=== PATIENT | female | born 1940 | race Caucasian/White ===

== ENCOUNTER 2017-05-19 11:02 | Inpatient (IN) | payer MEDICARE ==
[2017-05-19 11:51] LABS: PTT 34.5 SEC (22.9-36.1); Prothrombin Time 18.5 SEC (12.0-14.7)
[2017-05-19 11:53] LABS: #Eosinphils 0.1 thou/uL (0.0-0.7); #Monocytes 0.7 thou/uL (0.11-0.59); #Neutrophils 4.4 thou/uL (1.40-6.50); %Basophils 0.6 % (0.0-1.0); %Eosinophils 1.6 % (0.0-10.0); %Lymphocytes 15.8 % (21.0-51.0); %Monocytes 10.6 % (0.0-10.0); Hematocrit 16.8 % (36.0-47.0); Red Blood Cell (RBC) Count 2.27 mill/uL (4.20-5.40); White Blood Cell (WBC) Count 6.2 thou/uL (4.8-10.8)
[2017-05-19 12:07] LABS: Troponin I Less than 0.010 ng/mL (< 0.028)
[2017-05-19 12:08] LABS: ALT (SGPT) 14 U/L (8-55); AST (SGOT) 17 U/L (5-34); Alkaline Phosphatase 70 U/L (40-150); Anion Gap 8 mmol/L (10-20); BUN (Urea Nitrogen) 23 mg/dL (9.8-20.1); Bilirubin, Total 0.8 mg/dL (0.2-1.2); CK (CPK) 52 U/L (29-168); Calc. Creatinine Clearance 0 mL/min (70-130); Carbon Dioxide 25 mmol/L (23-31); Chloride 106 mmol/L (98-107); Estimated GFR-MDRD 54; Globulin 2.9 g/dL (2.4-3.5); Lipase 16 U/L (8-78); Protein, Total 6.4 g/dL (6.0-8.3)
--- NOTE | 2017-05-19 12:18 | RAD ---
AP VIEW OF THE CHEST: INDICATIONS: Chest pain with shortness of breath. COMPARISON: Prior exam dated 10/29/2012. FINDINGS: Midline sternotomy changes are similar. There is mild to moderate cardiomegaly. There is mild pulmo nary vascular congestion. No acute air space opacity or pleural effusion is evident. No acute osseo us abnormality is evident. Coronary stents are below the left heart border. These are stable to the comparison. IMPRESSION: Mild cardiomegaly. POS: JORDAN
--- NOTE | 2017-05-19 14:12 | HP ---
PRIMARY CARE PHYSICIAN: [facility]. REASON FOR ADMISSION: Symptomatic anemia. HISTORY OF PRESENT ILLNESS: A 76-year-old -[place] female with a history of coronary artery disease as well as paroxysmal atrial fibrillation on low dose of aspirin and chronic Eliquis therapy. The patient came to emergency room with 3-month history of intermittent substernal chest pain on ex ertion as well as dyspnea on exertion, palpitations, dizziness, and generalized weakness with exertio n. The patient reports that initially she was getting out of breath, palpitation and dyspnea after w alking about a block, but gradually this distance is decreasing. Last night, patient was able to wal k only from her bedroom to kitchen and she was getting out of breath and she was hurting in her chest . She denies any syncope. She denies any diaphoreses. She denies any associated nausea, vomiting. The patient reports that since Eliquis started 1 year, patient is feeling these symptoms. She never had any melenotic stool. She denies any hematochezia. She denies any hematemesis. She denies any e pigastric abdominal pain. The patient does report that she gets lightheadedness and headache symptom s in posterior aspect of her head and she takes Tylenol, but she denies taking any NSAID. She denies any fever or chills. She denies any NSAID abuse. The patient reports that she never had any upper and lower endoscopic evaluation in the past. Today, patient came to emergency room and she had routine blood test, which showed hemoglobin 5.1. I n the emergency room, she refused to check her guaiac. At this point, we are admitting this patient to telemetry floor for anemia evaluation. REVIEW OF SYSTEMS: The following complete review of systems was negative, unless otherwise mentioned in the HPI or below: Constitutional: Weight loss or gain, ability to conduct usual activities. Skin: Rash, itching. Eyes: Double vision, pain. ENT/Mouth: Nose bleeding, neck stiffness, pain, tenderness. Cardiovascular: Palpitations, dyspnea on exertion, orthopnea. Respiratory: Shortness of breath, wheezing, cough, hemoptysis, fever or night sweats. Gastrointestinal: Poor appetite, abdominal pain, heartburn, nausea, vomiting, constipation, or diarr hea. Genitourinary: Urgency, frequency, dysuria, nocturia. Musculoskeletal: Pain, swelling. Neurologic/Psychiatric: Anxiety, depression. Allergy/Immunologic: Skin rash, bleeding tendency. Please see my HPI for pertinent positives and negatives. All other review of systems reviewed and ne gative except as mentioned in the HPI. ALLERGIES: HYDROCODONE. CURRENT HOME MEDICATIONS: Lipitor 80 mg p.o. at bedtime, aspirin 81 mg p.o. daily, lisinopril 20 mg twice daily, Coreg 6.25 mg p.o. b.i.d., Synthroid 88 mcg p.o. daily, Eliquis 5 mg twice daily, Zetia 10 mg p.o. daily, hydralazine 25 mg twice daily, amlodipine 5 mg p.o. daily. PAST MEDICAL HISTORY: Patient was diagnosed with coronary artery disease in 1997. At that time, she had balloon angioplasty. Subsequently, she had cardiac catheterization in 2004, required 5 stent an d she did very well up until 2012. At that time, she required CABG, hypertension, dyslipidemia, rheu matoid arthritis, atrial fibrillation on chronic anticoagulation therapy. PAST SURGICAL HISTORY: CABG x5 and cataract surgery. PAST PSYCHIATRIC HISTORY: Anxiety and depression. SOCIAL HISTORY: Patient lives at home with her daughter. No history of tobacco, alcohol or illicit drug abuse. FAMILY HISTORY: Maternal side positive for coronary artery disease. Paternal side positive for vari ous cancers. EMERGENCY ROOM COURSE: Patient is receiving blood transfusion. PHYSICAL EXAMINATION: VITAL SIGNS: On arrival, blood pressure 131/51, pulse 60, respiratory rate 18, temperature 98.9, sat uration 100% on room air. Weight 70.8 kilograms. GENERAL: Patient is currently alert, awake, no obvious acute distress. HEAD: Normocephalic, atraumatic. EYES: Pupils round, reactive to light. Extraocular muscles intact. ENT: Oropharynx within normal limits. Moist mucous membranes. No oral lesions. No pharyngeal eryt gerardo, no exudates. NECK: Supple, no JVD, no thyromegaly, no carotid bruits. LUNGS: Clear to auscultation without any rhonchi or rales. CARDIAC: S1 and S2 regular. Systolic murmur noted at parasternal area. No gallop, no rub. ABDOMEN: Soft. No epigastric tenderness, no organomegaly, no mass, no suprapubic tenderness, no dis tention, no peritoneal sign. BACK: Unremarkable, no CVA tenderness. EXTREMITIES: Upper extremity passive movements of all joints are normal. Lower extremities: No mitch ma. Good peripheral pulsation. SKIN: No skin rash, pallor plus. PSYCHIATRIC: Normal affect. NEUROLOGIC: The patient is alert and oriented x3. Cranial nerves II-XII intact. Motor and sensatio n within normal limits. IMAGING AND SIGNIFICANT LABORATORY DATA: EKG showing sinus bradycardia, nonspecific ST-T changes. C hest x-ray based on my review, no acute cardiopulmonary process. CBC: WBC 6.2, hemoglobin 5.1, MCV 73.9, and platelet 168. INR 1.5. BMP: Sodium 135, potassium 4.0, chloride 106, carbon dioxide 25, anion gap 8, BUN 23, creatinine 0.99, glucose 151, calcium 9.0. LFT: AST 17, ALT 14, alkaline phosp hatase 70, albumin 3.5. Lipase 16, CK 52, CK-MB 1.2, troponin I less than 0.010. ASSESSMENT AND PLAN/IMPRESSION: 1. Symptomatic anemia. The patient has symptomatology of chest pain on exertion, dyspnea on exertio n, palpitations, dizziness, generalized weakness going on for last 3 months and currently found with hemoglobin 5.1. Patient has all classic symptoms of iron deficiency anemia, most likely related with chronic blood loss secondary to chronic anticoagulation therapy. At this point, we will check anemi a study with iron, ferritin, TIBC, and stool for guaiac. Patient will need 2 units of blood transfus ion for symptomatic anemia given her coronary artery disease. Patient will need gastrointestinal wor kup for anemia to rule out any ongoing blood loss. 2. Chronic iron deficiency anemia likely due to chronic blood loss. This patient denies any acute b lood loss history. We will check stool for guaiac. We will consult senior sql database developer as this patie nt never had any endoscopic evaluation and she did not have any anemia workup. As patient was on Natalie mell therapy, we will hold on aspirin as well as Eliquis therapy until procedure is done. 3. Coronary artery disease with a history of coronary artery bypass graft. We will monitor [facility] because of severe anemia. We will hold on aspirin and Eliquis therapy. If blood pressure permits, then we will continue with Coreg 6.25 mg twice daily, lisinopril 20 mg twice daily, hydrala zine 25 mg twice daily and amlodipine 5 mg p.o. daily. We will also continue statin therapy with Lip itor 80 mg p.o. at bedtime and Zetia 10 mg p.o. daily. 4. Hypertension. We will continue lisinopril, Coreg, hydralazine and amlodipine as mentioned above. 5. Dyslipidemia. We will check lipid profile tomorrow and continue Lipitor and Zetia as per home do norris. 6. History of paroxysmal atrial fibrillation, currently on sinus rhythm and patient is supposed to g et echocardiography as per Dr. Gonzales and we will obtain echocardiography as well. Patient will be on hold for chronic anticoagulation therapy. 7. Hypothyroidism. We will continue Synthroid 88 mcg p.o. daily. 8. Deep venous thrombosis prophylaxis, sequential compression device boots. We will hold on Lovenox therapy because of severe anemia. 9. Gastrointestinal prophylaxis, Protonix 40 mg IV daily. 10. Code status: The patient is FULL CODE. Patient's daughter is surrogate decision maker. 11. Murmur. Patient will need echocardiography for further evaluation. I am suspecting hemic murmu r, but underlying valvular heart disease needs to be excluded. Disposition plan based on clinical course. We are expecting patient's stay in the hospital more than 2 midnights. Plan of care discussed with the patient's daughter at bedside in the emergency room.
[2017-05-19] MEDS ORDERED: Eucerin (Mineral Oil/Petrolatum,White) 30 gm Jar TOP PRN (14:40)
[2017-05-19] MEDS ORDERED: Diabetic Tussin 200 MG/10 ML UDCUP PO PRN (14:40)
[2017-05-19] MEDS ORDERED: Chloraseptic Spray 180 ml Bottle PO PRN (14:40)
[2017-05-19] MEDS ORDERED: Senokot 8.6 MG TAB PO PRN (14:40)
[2017-05-19] MEDS ORDERED: Nitroglycerin 0.4 MG TAB (25 Tab Bottle) SL PRN (14:40)
[2017-05-19] MEDS ORDERED: Artificial Tears 18 DROP/0.9 ML EA EYE PRN (14:40)
[2017-05-19] MEDS ORDERED: Ondansetron ODT 4 MG TAB PO PRN (14:40)
[2017-05-19] MEDS ORDERED: Ondansetron HCl/PF 4 MG/2 ML Vial IVP PRN (14:40)
[2017-05-19] MEDS ORDERED: Loperamide HCl 2 MG CAP PO PRN (14:40)
[2017-05-19] MEDS ORDERED: Mag-Al 1200 mg/1200 mg/30 ML UDCUP PO PRN (14:40)
[2017-05-19] MEDS ORDERED: Benzonatate 100 MG CAP PO PRN (14:40)
[2017-05-19] MEDS ORDERED: hydrALAZINE 20 MG/ML VIAL SLOW IVP PRN (14:40)
[2017-05-19] MEDS ORDERED: Milk Of Magnesia 30 ML UDCUP PO PRN (14:40)
[2017-05-19] MEDS ORDERED: Zolpidem Tartrate 5 MG TAB PO PRN (14:40)
[2017-05-19 15:02] LABS: Iron 43 ug/dL (50-170)
[2017-05-19 15:33] VITALS: BMI 23.8
[2017-05-19 15:35] LABS: Troponin I Less than 0.010 ng/mL (< 0.028)
[2017-05-19] MEDS: Carvedilol 6.25 MG TAB PO SCH (17:40)
[2017-05-19] MEDS: Ferrous Sulfate 325 MG TAB PO SCH (17:40)
[2017-05-19] MEDS: Lisinopril 10 MG TAB PO SCH (21:15)
[2017-05-19] MEDS: Atorvastatin Calcium 40 MG TAB PO SCH (21:15)
[2017-05-19] MEDS: hydrALAZINE 25 MG TAB PO SCH (21:16)
--- NOTE | 2017-05-20 01:21 | CON ---
DATE OF CONSULTATION: 05/19/2017 CHIEF COMPLAINT: Shortness of breath and chest pain on exertion. HISTORY OF PRESENT ILLNESS: Ms. Edwards is a 76-year-old woman who has a history of coronary artery dis ease and paroxysmal atrial fibrillation, who has been on aspirin and Eliquis, who has had chest pain and shortness of breath on exertion for the last several weeks. This has gradually worsened over the last week such that she can only go a few feet before she has to stop and rest. [facility] and was found to have severe anemia with a hemoglobin of 5.1. She has had no overt bleed ing. No black stools or red stools. She has had no abdominal pain, nausea, or vomiting. No diarrhe a. No constipation. She has been followed by Dr. Gonzales in the past for her coronary artery disea se. PAST MEDICAL HISTORY: Coronary artery disease, hypertension, hyperlipidemia, rheumatoid arthritis, p aroxysmal atrial fibrillation, possibly aortic stenosis. PAST SURGICAL HISTORY: Coronary artery bypass graft, cataract surgery. She has not had prior upper or lower endoscopy. FAMILY HISTORY: Negative for GI malignancy. SOCIAL HISTORY: No alcohol, tobacco, or drugs. ALLERGIES: HYDROCODONE. MEDICATIONS: Prior to admission, Eliquis 5 mg twice daily. Her last dose of Eliquis was this mornin g. She takes aspirin 81 mg daily, Lipitor, Synthroid, Coreg, Zetia, hydralazine, amlodipine. REVIEW OF SYSTEMS: Negative x10 systems reviewed except as stated in the history of present illness. PHYSICAL EXAMINATION: VITAL SIGNS: Temperature 98.9, blood pressure 130/60, pulse 65. GENERAL: She is in no acute distress. She is awake and alert. HEENT. Eyes have no scleral icterus. Oropharynx is clear without lesions. NECK: No cervical or supraclavicular lymphadenopathy. LUNGS: Clear to auscultation bilaterally. She has a 3/6 systolic murmur at the right upper sternal border and left lower sternal border. HEART: Regular. ABDOMEN: Soft, nontender, nondistended. Bowel sounds are present. No hepatomegaly. EXTREMITIES: No lower extremity edema. LABORATORY DATA: White blood cell count 6.2, hemoglobin 5.1, MCV 73.9, platelets 168. INR 1.5. Cre atinine 0.99. Iron 43, TIBC 410, ferritin 7.76. Bilirubin 0.8, AST 17, ALT 14, alkaline phosphatase 70, albumin 3.5. IMPRESSION: 1. Severe symptomatic iron-deficiency anemia. She has no overt blood loss but has been on Eliquis o kasey the last year and presents with clear iron-deficiency anemia. 2. She has had progressive chest pain and shortness of breath on exertion secondary to anemia. She has a loud murmur and may have a history of aortic stenosis. She has an echocardiogram ordered for t omorrow. 3. Anticoagulation with Eliquis for history of paroxysmal atrial fibrillation. Her last dose was morning. RECOMMENDATIONS: 1. She is planned for an echocardiogram and Cardiology evaluation tomorrow. 2. She is not having any overt bleeding. We will allow the Eliquis to metabolize and will for EGD a nd colonoscopy on Tuesday. We will start her on a clear liquid diet tomorrow and give a bowel prep tomorrow evening.
[2017-05-20 06:01] LABS: Anion Gap 6 mmol/L (10-20); BUN (Urea Nitrogen) 18 mg/dL (9.8-20.1); Calc. Creatinine Clearance 68 mL/min (70-130); Calcium 8.6 mg/dL (7.8-10.44); Carbon Dioxide 27 mmol/L (23-31); Chloride 106 mmol/L (98-107); Cholesterol 82 mg/dl (< 200 Desired); Estimated GFR-MDRD 73; LDL Cholesterol, Calculated 36 mg/dL
[2017-05-20 06:25] LABS: #Eosinphils 0.1 thou/uL (0.0-0.7); #Lymphocytes 1.4 thou/uL (1.20-3.40); #Monocytes 1.1 thou/uL (0.11-0.59); %Basophils 0.6 % (0.0-1.0); %Eosinophils 1.2 % (0.0-10.0); %Lymphocytes 17.9 % (21.0-51.0); %Monocytes 14.5 % (0.0-10.0); Hematocrit 23.5 % (36.0-47.0); Mean Platelet Volume 8.5 fL (7.4-10.4); Red Blood Cell (RBC) Count 3.04 mill/uL (4.20-5.40); White Blood Cell (WBC) Count 7.6 thou/uL (4.8-10.8)
--- NOTE | 2017-05-20 06:31 | PDOC.FM ---
- Subjective Subjective: Patient doing well this morning. No significant overnight events. She reports that her chest pain has resolved. She was able to get up and walk around 03:00 AM and was not experiencing shortness of breath. Her color has returned after the blood transfusion. Patient denies nausea, vomiting, GI bleeding, diarrhea, constipation. She states that she has never had a colonoscopy performed. - Objective MAR Reviewed: Yes Vital Signs & Weight: Vital Signs (12 hours) Temp Pulse Pulse Resp BP BP BP 05/20/17 03:50 99 F 57 L 13 145/64 H 05/20/17 02:30 98.8 F 68 18 128/60 05/19/17 23:05 98.9 F 65 18 125/66 05/19/17 21:16 25 L 130/60 05/19/17 21:15 131/61 05/19/17 20:00 98.9 F 25 L 65 18 129/58 L 131/61 Pulse Ox 05/20/17 03:50 94 L 05/20/17 02:30 05/19/17 23:05 05/19/17 21:16 05/19/17 21:15 05/19/17 20:00 92 L Weight Weight 70.902 kg I&O: 05/18/17 05/19/17 05/20/17 06:59 06:59 06:59 Intake Total 120 Balance 120 Result Diagrams: 05/20/17 05:09 05/20/17 05:09 EKG Reviewed by me: Yes Radiology Reviewed by me: Yes <Marlen Kim - Last Filed: 05/20/17 08:15> - Objective Vital Signs & Weight: Vital Signs (12 hours) Temp Pulse Pulse Resp BP BP BP 05/20/17 09:27 57 L 05/20/17 09:26 57 L 134/63 05/20/17 07:40 100.0 F H 57 L 16 134/63 05/20/17 03:50 99 F 57 L 13 145/64 H 05/20/17 02:30 98.8 F 68 18 128/60 05/19/17 23:05 98.9 F 65 18 125/66 Pulse Ox 05/20/17 09:27 05/20/17 09:26 05/20/17 07:40 92 L 05/20/17 03:50 94 L 05/20/17 02:30 05/19/17 23:05 Weight Weight 152 lb I&O: 05/19/17 05/20/17 05/21/17 06:59 06:59 06:59 Intake Total 600 Balance 600 Result Diagrams: 05/20/17 05:09 05/20/17 05:09 <Sancho Stern - Last Filed: 05/20/17 10:23> Phys Exam - Physical Examination Constitutional: NAD HEENT: moist MMs, sclera anicteric Neck: supple Respiratory: clear to auscultation bilateral Cardiovascular: RRR systolic murmur Gastrointestinal: soft, non-tender, no distention, positive bowel sounds Musculoskeletal: pulses present Neurological: non-focal, moves all 4 limbs Psychiatric: A&O x 3 Skin: no rash, cap refill <2 seconds <Marlen Kim - Last Filed: 05/20/17 08:15> Dx/Plan (1) Symptomatic anemia Code(s): D64.9 - ANEMIA, UNSPECIFIED Status: Acute (2) CAD (coronary artery disease) Code(s): I25.10 - ATHSCL HEART DISEASE OF [place] CORONARY ARTERY W/O ANG PCTRS Status: Acute QualifierTitle: Coronary Disease-Associated Artery/Lesion type: bypass graft [place] vs. transplanted heart: [place] heart (3) Systolic murmur Code(s): R01.1 - CARDIAC MURMUR, UNSPECIFIED Status: Acute (4) HTN (hypertension) Code(s): I10 - ESSENTIAL (PRIMARY) HYPERTENSION Status: Acute QualifierTitle: Hypertension type: essential hypertension Qualified Code( s): I10 - Essential (primary) hypertension (5) HLD (hyperlipidemia) Code(s): E78.5 - HYPERLIPIDEMIA, UNSPECIFIED Status: Acute QualifierTitle: Hyperlipidemia type: unspecified Qualified Code(s): E78.5 - Hyperlipidemia, unspecified (6) Paroxysmal atrial fibrillation Code(s): I48.0 - PAROXYSMAL ATRIAL FIBRILLATION Status: Acute (7) Hypothyroid Code(s): E03.9 - HYPOTHYROIDISM, UNSPECIFIED Status: Acute QualifierTitle: Hypothyroidism type: acquired Qualified Code(s): E03.9 - Hypothyroidism, unspecified - Plan Plan: Plan: Severe symptomatic anemia: - GI consulted; appreciate recommendations - Eliquis d/c'd - EGD planned for Tuesday - Patient transfused 2u pRBC's - Hg this AM 7.4; Hg on admission 5.1 - Patient symptomatically improved CAD s/p 5v CABG: - Continue home medications Systolic heart murmur: - Uncertain whether this has been documented in the past - Echo pending - Cardiology consulted; appreciate recs HTN: - Continue home medications HLD: - Continue home medications Paroxysmal A-fib: - d/c'd eliquis due to severe, symptomatic anemia - In sinus rhythm, rate controlled Hypothyroid: - Continue home medications <Marlen Kim - Last Filed: 05/20/17 08:15> Attending Addendum - Attending Addendum I personally evaluated the patient and discussed the management with Dr. Kim I agree with the History, Examination, Assessment and Plan documented above with any addition or exceptions noted below. Patient is much better after blood. Hgb is now 7.2. She has been having angina for 3 weeks. We have held ASA and Eliquis. She has EGD and colonoscopy pending tomorrow. Because she has symptomatic coronary disease, we are going to transfuse her to HBG of 8. Echo is also pending today. <Sancho Stern - Last Filed: 05/20/17 10:23>
[2017-05-20] MEDS: Levothyroxine Sodium 88 MCG TAB PO SCH (06:40)
[2017-05-20] MEDS: Pantoprazole 40 MG VIAL IVP SCH (09:25)
[2017-05-20] MEDS: Ezetimibe 10 MG TAB PO SCH (09:26)
[2017-05-20] MEDS: hydrALAZINE 25 MG TAB PO SCH ×2 (09:26→20:07)
[2017-05-20] MEDS: Amlodipine 5 MG TAB PO SCH (09:27)
[2017-05-20] MEDS: Carvedilol 6.25 MG TAB PO SCH ×2 (09:27→17:17)
[2017-05-20] MEDS: Acetaminophen 325 MG TAB PO PRN ×2 (09:27→18:30)
[2017-05-20] MEDS: Lisinopril 10 MG TAB PO SCH ×2 (09:27→20:07)
[2017-05-20] MEDS: Folic Acid 1 MG TAB PO SCH (09:27)
[2017-05-20] MEDS: Ferrous Sulfate 325 MG TAB PO SCH ×2 (09:27→17:17)
--- NOTE | 2017-05-20 10:50 | CON ---
DATE OF CONSULTATION: 05/20/2017 HISTORY OF PRESENT ILLNESS: Noy Edwards is a 76-year-old white female who is on stroke prophylaxis with Eliquis and has paroxysmal atrial fibrillation and is admitted with a hemoglobin of 5.1. I initially evaluated her in 11/1997. She had begun to have chest tightness in [address] Lawler at that time and underwent cardiac catheterization. She was told that she had mild coronary artery disease. For 2 weeks prior to admission in she had a dramatic change in that she had 2-3 episodes per day of chest burning. This had all been associated with exertion and she learned not to lift anything at all due to her discomfort. She would become diaphoretic with this as well as mildly short of breath, but had no nausea or vomiting. She also had several episodes of nocturnal discomfort. This discomfort would be relieved in 2-3 minutes with sublingual nitroglycerin. She also had dramatic reduction in her energy level. On admission her CK was 75, troponin I was 1.3. Echo revealed normal left ventricular function, ejection fraction of 55-60% with moderate to severe mitral regurgitation, mild aortic valvular fibrosis. She underwent cardiac catheterization which revealed mild inferobasal hypokinesis with ejection fraction of 50-55% and mild mitral regurgitation. The left main was normal, there was a 40% mid LAD and 80% first diagonal (this had been present since catheterization in 1989). The circumflex had a 95% mid stenosis and a 50-60% second obtuse marginal stenosis. The right coronary artery had a 90% mid stenosis. No further procedure was performed on the day of catheterization. A long discussion was held with the patient in regards to therapy - bypass surgery versus 2-vessel stent placement. Ultimately she opted for stent placement. The following Tuesday she underwent placement of GFX stents. The second obtuse marginal was stented with a 3.0 x 12 mm stent with reduction from 50% to 0%. In the mid circumflex 3.0 x 24 mm stent with reduction from 95% to 0%. In the mid proximal right coronary artery a 3.0 x 30 mm and 3.0 x 24 mm stents with reduction from 80% to 0%. With inflation she had her usual chest discomfort. Later that day sheath was pulled. She was ambulating and transferred to the floor without discomfort. She had significant bradycardia with heart rates in the 40s on Kerlone and Cardizem. Cardizem was initially discontinued and Kerlone was discontinued. She was placed on Norvasc. With that, her heart rate was in the 70s and 80s and she denied any further significant bradycardia. She was discharged on Ticlid 250, Ecotrin 1 daily, Pravachol and Norvasc. After that she did not have any significant chest discomfort. In 03/2006 she was seen in followup and was to return for a Cardiolite treadmill, but never did. She had some chest discomfort at that time which sounded gastrointestinal in nature and was placed on a proton pump inhibitor, but never returned for followup. I did not see her again until 10/2012. Six days prior to admission she started developing burning in her chest radiating up to her throat, associated with some shortness of breath and diaphoresis, but no nausea or vomiting. This would last approximately 2 minutes. She also noted a fluttering sensation associated with that. She had a more intense episode and presented with a blood pressure 160/134, heart rate 99 per minute and was in atrial fibrillation. She essentially has had no cardiac pain from the stent placement in 11/1997 until 10/2012. She was treated with intravenous Cardizem and placed on carvedilol 6.25 b.i.d. and converted to sinus rhythm. Troponin I was in the low intermediate range at 0.131. CK-MB was normal. She decided not to undergo cardiac catheterization unless absolutely necessary and so she underwent Lexiscan Cardiolite testing. This revealed inferolateral ischemia. She then underwent cardiac catheterization which revealed severe inferobasal hypokinesis with ejection fraction of 55-60%. There was a 20% left main stenosis, 30% mid LAD, first diagonal had a 50% in-stent restenosis. The circumflex had a 30% mid circumflex in-stent restenosis. There was a 70% distal circumflex, stenosis before the third obtuse marginal. The second obtuse marginal had a 90 % ostial lesion, and a 40% in-stent restenosis. The right coronary had a 20% mid RCA in-stent restenosis. The right posterolateral had a 70% followed by 60 % stenosis. She underwent CABG x3 by Dr. Garcia with saphenous vein grafts to the first obtuse marginal, second obtuse marginal and right posterolateral. She also underwent epicardial maze procedure and left atrial appendage ligation. It was felt that there was only minimal disease in the LAD system and this was not bypassed. Postoperatively, she did not have any further episodes of atrial fibrillation. She has continued to be followed in the office since that time and has done fairly well, but frequently she would complain of feeling her heart pounding whenever she would lay on her left side. When she presented for follow up in March 2016 she was found to be back in atrial fibrillation. Aspirin was reduced to 81 mg. She was started on Eliquis 5 mg b.i.d. She then returned in 04/2016. She was placed on Multaq 400 mg b.i.d. She only took that for a short period of time due to headache and feeling bad whenever she would take it , even though she was taking it with meals. Echocardiogram in 04/2016 revealed an ejection fraction of 55-60% with moderate mitral regurgitation, moderate to severe aortic stenosis with peak gradient of 67 mm, mean gradient of 37 mm, aortic valve area of 1.08 cm2, moderate aortic insufficiency, severe tricuspid regurgitation, and mild pulmonic regurgitation. In 08/2016 she was in sinus rhythm. She continued to complain of her heart pounding and palpitations and she underwent a 30-day monitor which did not reveal any atrial fibrillation during that period. She was last seen in the office on 04/04/2017. She continued to complain of her heart pounding at times when she would lie on her left side. Over the last 3 weeks she has begun to notice exertional chest pressure radiating to her neck as well as a headache at that time. If she would sit and rest this would resolve in 1-2 minutes. She denies any shortness of breath, diaphoresis, nausea or vomiting with this. Yesterday she was so weak she could hardly even get up out of bed and decided to go have this evaluated. She was found to have a hemoglobin of 5.1 and is admitted for further evaluation. She denies any melena, hematochezia or hematemesis. She denies resting chest discomfort. PAST MEDICAL HISTORY: 1. Coronary artery disease since 1997. 2. Hypertension. 3. Hypercholesterolemia. 4. Hypothyroidism. 5. 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 6. Paroxysmal atrial fibrillation. 7. Rheumatoid arthritis. PAST SURGICAL HISTORY: 1. CABG x3, Maze and KARRIE ligation. 2. Cataract surgery. HOME MEDICATIONS: When she was last seen in the office include aspirin 81 mg daily, Eliquis 5 mg b.i.d., levothyroxine 88 mcg daily, vitamin B12, carvedilol 6.25 b.i.d., amlodipine 10 mg 1/2 tablet every other day, hydralazine 25 mg b.i.d., Zetia 10 mg q.i.d., lisinopril 20 mg b.i.d., atorvastatin 80 mg daily. ALLERGIES: HYDROCODONE. SOCIAL HISTORY: She has never smoked. She does not drink. FAMILY HISTORY: Mother at age of 69 after having multiple myocardial infarctions for 10 years prior to her . She with a myocardial infarction. REVIEW OF SYSTEMS: A 12-point review of systems otherwise unremarkable. PHYSICAL EXAMINATION: VITAL SIGNS: Blood pressure 134/63, pulse of 57. HEENT: PERRL. NECK: Supple. LUNGS: Clear. CARDIOVASCULAR: S1 and S2 are normal, without any S3 or S4. There is a 2/6 systolic ejection murmur heard loudest in the aortic area radiating into the carotids. ABDOMEN: Normal bowel sounds, without tenderness or organomegaly. EXTREMITIES: Revealed no clubbing, cyanosis or edema. NEUROLOGIC: Grossly intact. SKIN: Warm and dry. LABORATORY: EKG reveals sinus bradycardia with rate of 58 per minute with nonspecific ST segment changes. White count 6200, hemoglobin 5.1, hematocrit 16.8, platelets 168,000. After transfusion, her hemoglobin is up to 7.4. INR 1.5, sodium 135, potassium 4.1, chloride 106, carbon dioxide 27, BUN 18, creatinine 0.77. Cholesterol 82, triglycerides 72, HDL 32, LDL 36, iron 43, TIBC 410, ferritin 7.76. Cardiac enzymes are unremarkable. IMPRESSION: 1. Iron deficiency anemia. She gives no history of melena or gastrointestinal bleeding. She has received a transfusion, her current hemoglobin is 7.4. 2. Coronary artery disease, status post coronary artery bypass graft x3 in 2012. 3. Maze procedure and left atrial appendage ligation at the time of bypass surgery. 4. Paroxysmal atrial fibrillation when she presented for followup in 03/2016. She was placed on Multaq, but felt bad and weak on that and so she discontinued it. 5. Hypertension. 6. Hypercholesterolemia 7. Hypothyroidism. 8. Positive family history. 9. Moderate to severe aortic stenosis on last echocardiogram one year ago. PLAN: Eliquis will be discontinued. Echocardiogram will be performed to reassess the severity of her aortic stenosis. TSH will be obtained. She appears to be an acceptable risk to undergo EGD and colonoscopy to evaluate her GI bleeding. MTDD
[2017-05-20] MEDS: Cyanocobalamin (Vitamin B-12) 1,000 MCG TAB PO SCH (12:07)
[2017-05-20] MEDS ORDERED: GoLYTELY 4,000 ml Bottle PO SCH (18:00)
--- NOTE | 2017-05-20 20:01 | PRG ---
DATE OF SERVICE: 05/20/2017 SUBJECTIVE: Ms. Edwards has no acute complaints today. She did receive blood transfusion. OBJECTIVE: VITAL SIGNS: Temperature 99.3, pulse 54, and blood pressure 147/65. GENERAL: She is in no acute distress. She is awake and alert. LUNGS: Clear to auscultation bilaterally. HEART: Regular rate and rhythm. ABDOMEN: Soft, nontender, nondistended. Bowel sounds are present. EXTREMITIES: No lower extremity edema. LABORATORY DATA: Her hemoglobin has improved from 5.1-7.4 after transfusion. IMPRESSION: Severe iron deficiency anemia. PLAN: EGD and colonoscopy tomorrow.
[2017-05-20] MEDS: Atorvastatin Calcium 40 MG TAB PO SCH (20:08)
[2017-05-20] MEDS ORDERED: Furosemide 40 MG/4 ML VIAL SLOW IVP SCH (21:15)
[2017-05-20 22:28] LABS: Hematocrit 28.3 % (36.0-47.0)
[2017-05-21] MEDS: Levothyroxine Sodium 88 MCG TAB PO SCH (05:44)
--- NOTE | 2017-05-21 06:02 | PDOC.FM ---
- Subjective Subjective: Patient doing well this morning. Sitting up at bedside. Denies shortness of breath, chest pain, N/V. She has been drinking prep for colonoscopy/EGD. No significant overnight events. - Objective MAR Reviewed: Yes Vital Signs & Weight: Vital Signs (12 hours) Temp Pulse Pulse Resp BP BP BP 05/21/17 04:57 05/21/17 03:46 98.4 F 52 L 16 114/54 L 05/20/17 22:34 98.9 F 55 L 18 136/59 L 05/20/17 20:07 61 134/64 05/20/17 20:00 98.9 F 61 18 05/20/17 18:30 100.0 F H 61 18 134/64 BP Pulse Ox 05/21/17 04:57 95 05/21/17 03:46 05/20/17 22:34 05/20/17 20:07 05/20/17 20:00 134/64 05/20/17 18:30 92 L Weight Weight 68.946 kg I&O: 05/19/17 05/20/17 05/21/17 06:59 06:59 06:59 Intake Total 600 1020 Output Total 1300 Balance 600 -280 Result Diagrams: 05/21/17 06:05 05/21/17 06:05 EKG Reviewed by me: Yes Radiology Reviewed by me: No <Marlen Kim - Last Filed: 05/21/17 07:47> - Objective Vital Signs & Weight: Vital Signs (12 hours) Temp Pulse Resp BP BP BP Pulse Ox 05/21/17 09:44 58 L 141/62 H 05/21/17 07:20 98.2 F 58 L 16 138/63 94 L 05/21/17 04:57 95 05/21/17 03:46 98.4 F 52 L 16 114/54 L Weight Weight 152 lb I&O: 05/20/17 05/21/17 05/22/17 06:59 06:59 06:59 Intake Total 600 1020 Output Total 1300 Balance 600 -280 Result Diagrams: 05/21/17 06:05 05/21/17 06:05 <Sancho Stern - Last Filed: 05/21/17 10:54> Phys Exam - Physical Examination Constitutional: NAD HEENT: moist MMs, sclera anicteric Neck: supple Respiratory: clear to auscultation bilateral Cardiovascular: RRR systolic murmur Gastrointestinal: soft, non-tender, no distention, positive bowel sounds Musculoskeletal: pulses present Neurological: non-focal, moves all 4 limbs Psychiatric: A&O x 3 Skin: no rash, cap refill <2 seconds <Marlen Kim - Last Filed: 05/21/17 07:47> Dx/Plan (1) Symptomatic anemia Code(s): D64.9 - ANEMIA, UNSPECIFIED Status: Acute (2) CAD (coronary artery disease) Code(s): I25.10 - ATHSCL HEART DISEASE OF [place] CORONARY ARTERY W/O ANG PCTRS Status: Acute QualifierTitle: Coronary Disease-Associated Artery/Lesion type: bypass graft [place] vs. transplanted heart: [place] heart (3) Systolic murmur Code(s): R01.1 - CARDIAC MURMUR, UNSPECIFIED Status: Acute (4) HTN (hypertension) Code(s): I10 - ESSENTIAL (PRIMARY) HYPERTENSION Status: Acute QualifierTitle: Hypertension type: essential hypertension Qualified Code( s): I10 - Essential (primary) hypertension (5) HLD (hyperlipidemia) Code(s): E78.5 - HYPERLIPIDEMIA, UNSPECIFIED Status: Acute QualifierTitle: Hyperlipidemia type: unspecified Qualified Code(s): E78.5 - Hyperlipidemia, unspecified (6) Paroxysmal atrial fibrillation Code(s): I48.0 - PAROXYSMAL ATRIAL FIBRILLATION Status: Acute (7) Hypothyroid Code(s): E03.9 - HYPOTHYROIDISM, UNSPECIFIED Status: Acute QualifierTitle: Hypothyroidism type: acquired Qualified Code(s): E03.9 - Hypothyroidism, unspecified - Plan Plan: Plan: Severe symptomatic anemia: - GI consulted; appreciate recommendations - Joan d/c'd - EGD & colonoscopy planned for today - Patient transfused total of 3u pRBC's; given lasix after last unit of blood due to dx of dCHF - Hg 9.0 after transfusion - Patient symptomatically improved CAD s/p 5v CABG: - Continue home medications Systolic heart murmur: - Uncertain whether this has been documented in the past - Echo shows 3/3 dCHF with moderate MR and TR. Elevated pulmonary arterial pressure at 45 mmHg - Cardiology consulted; appreciate recs HTN: - Continue home medications HLD: - Continue home medications Paroxysmal A-fib: - d/c'd eliquis due to severe, symptomatic anemia - In sinus rhythm, rate controlled Hypothyroid: - Continue home medications Disposition: plan for d/c today or tomorrow pending GI recs <Marlen Kim - Last Filed: 05/21/17 07:47> Attending Addendum - Attending Addendum I personally evaluated the patient and discussed the management with Dr. Kim I agree with the History, Examination, Assessment and Plan documented above with any addition or exceptions noted below. Patient needs one more day in hospital. She is having EGD, colonoscopy today. We need to make sure she is stable in terms of CV status, Hgb, and no further bleeding. We are holding Eliquis for now, and will likely resume ASA is no ulcers. If she keeps dropping Hgb, may need a capsule endoscopy later. <Sancho Stern - Last Filed: 05/21/17 10:54>
[2017-05-21 06:13] LABS: #Eosinphils 0.2 thou/uL (0.0-0.7); #Lymphocytes 1.2 thou/uL (1.20-3.40); #Monocytes 0.8 thou/uL (0.11-0.59); #Neutrophils 4.5 thou/uL (1.40-6.50); %Basophils 0.4 % (0.0-1.0); %Eosinophils 2.8 % (0.0-10.0); %Lymphocytes 17.6 % (21.0-51.0); %Monocytes 12.4 % (0.0-10.0); Hematocrit 29.8 % (36.0-47.0); Mean Platelet Volume 8.1 fL (7.4-10.4); Red Blood Cell (RBC) Count 3.78 mill/uL (4.20-5.40); White Blood Cell (WBC) Count 6.7 thou/uL (4.8-10.8)
[2017-05-21 06:47] LABS: Anion Gap 14 mmol/L (10-20); BUN (Urea Nitrogen) 15 mg/dL (9.8-20.1); Calc. Creatinine Clearance 60 mL/min (70-130); Calcium 9.1 mg/dL (7.8-10.44); Carbon Dioxide 26 mmol/L (23-31); Chloride 103 mmol/L (98-107); Estimated GFR-MDRD 65; Magnesium 1.9 mg/dL (1.6-2.6); Phosphorus 3.7 mg/dL (2.3-4.7)
[2017-05-21] MEDS ORDERED: Fentanyl 100 MCG/2 ML VIAL ONE (08:07)
[2017-05-21] MEDS: Ezetimibe 10 MG TAB PO SCH (09:43)
[2017-05-21] MEDS: Pantoprazole 40 MG VIAL IVP SCH (09:43)
[2017-05-21] MEDS: Ferrous Sulfate 325 MG TAB PO SCH ×2 (09:44→18:11)
[2017-05-21] MEDS: Cyanocobalamin (Vitamin B-12) 1,000 MCG TAB PO SCH (09:44)
[2017-05-21] MEDS: Folic Acid 1 MG TAB PO SCH (09:44)
[2017-05-21] MEDS: Lisinopril 10 MG TAB PO SCH ×2 (09:44→21:22)
[2017-05-21] MEDS: hydrALAZINE 25 MG TAB PO SCH ×2 (09:44→21:21)
[2017-05-21] MEDS: Amlodipine 5 MG TAB PO SCH (09:44)
[2017-05-21] MEDS: Carvedilol 6.25 MG TAB PO SCH ×2 (09:45→18:11)
--- NOTE | 2017-05-21 11:10 | OP ---
DATE OF PROCEDURE: 05/21/2017 PROCEDURE PERFORMED: Esophagogastroduodenoscopy with biopsy. PREOPERATIVE DIAGNOSES: Anemia, occult gastrointestinal bleeding. POSTOPERATIVE DIAGNOSES: 1. Small hiatus hernia. 2. Small duodenal polyp. PROCEDURE IN DETAIL: The patient was placed on her left lateral position and was given sedation by [facility] Anesthesia Department. A Pentax video gastroscope under direct vision was passed down the orophar ynx, past the GE junction, into the stomach and subsequently into the descending duodenum. The esoph ageal mucosa appeared normal. The GE junction, no pathology seen. The patient had a small hiatus he rnia. Retroflexion failed to show any lesions in the fundus or cardia. The gastric body, gastric an trum, incisura angularis, no pathology seen. The duodenal bulb, no pathology seen. The descending d uodenum, again no pathology seen except for some small polyp. The duodenum was biopsied. The stomac h was decompressed and the scope removed.
[2017-05-21] MEDS ORDERED: Propofol 200 MG/20 ML VIAL ONE (11:55)
[2017-05-21] MEDS ORDERED: Lidocaine 1% PF 5 ML VIAL ONE (11:55)
--- NOTE | 2017-05-21 12:47 | OP ---
DATE OF PROCEDURE: 05/21/2017 OPERATIVE PROCEDURE: Colonoscopy and polypectomy. PREOPERATIVE DIAGNOSES: A 76-year-old female with anemia, occult gastrointestinal ble eding. Undergoing colonoscopy. POSTOPERATIVE DIAGNOSES: 1. Sessile ascending colon polyp, status post polypectomy with good hemostasis. Unfortunately, the polyp was . 2. Sigmoid diverticular disease. 3. 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 DESCRIPTION OF PROCEDURE: The patient was placed on her left lateral position and was given sedation by Anesthesia Department. A rectal exam was done before the scope was advanced into the rectum. No lesions were felt on rectal exam. A Pentax video colonoscope was introduced into the rectum and adv anced all the way into the cecum. The quality of prep was good except for some retained stool interm ittently in the colon. The appendiceal orifice, ileocecal valve, and cecum, no pathology seen. The ascending colon showed a sessile polyp. The polyp removed with snare cautery, but the polyp was lost in the colonic lumen. The hepatic flexure, transverse colon, splenic flexure, and descending colon, no pathology seen. The sigmoid colon showed scattered diverticular disease. Retroflexion of the sc ope in the rectum showed hemorrhoids and what appears to be a fibroepithelial polyp. OVERALL IMPRESSION: At the time of endoscopy, no active bleeding was seen. RECOMMENDATIONS: 1. Iron supplement. 2. Follow up H&H.
--- NOTE | 2017-05-21 14:43 | PDOC.CTH ---
Cardiology Progress Note - Subjective She had her colonoscopy earlier today. She denies any chest pain, tightness, pressure, SOB. - Objective Vital Signs Temp Pulse Resp BP BP BP Pulse Ox 05/21/17 12:04 98.1 F 57 L 18 108/54 L 96 05/21/17 09:44 58 L 141/62 H 05/21/17 07:20 98.2 F 58 L 16 138/63 94 L 05/21/17 04:57 95 05/21/17 03:46 98.4 F 52 L 16 114/54 L Weight 152 lb 05/20/17 05/21/17 05/22/17 06:59 06:59 06:59 Intake Total 600 1020 Output Total 1300 Balance 600 -280 - Physical Examination General/Neuro: alert & oriented x3, NAD Neck: no JVD present Lungs: CTA, unlabored respirations Heart: RRR Abdomen: NT/ND Extremities: + edema B (trace) - Telemetry Telemetry Rhythm: NSR - Labs Result Diagrams: 05/21/17 06:05 05/21/17 06:05 Troponin/CKMB CK-MB (CK-2) 1.2 ng/mL (0-6.6) 05/19/17 11:35 Troponin I Less than 0.010 ng/mL (< 0.028) 05/19/17 15:03 - Assessment/Plan 1. Iron def anemia 2. CAD 3. S/P CABG in 2002 4. Paroxysmal afib 5. HTN 6. HLP 7. Mod to severe . PLAN: - Continue to hold Eliquis for now. - No obvious source of bleeding on upper and lower scope. - Aspirin alone for stroke prophylaxis if Hgb stable in the next few weeks. May be a candidate for Lariat or Watchman device.
--- NOTE | 2017-05-21 15:40 | EKG ---
Test Reason : CP Blood Pressure : / mmHG Vent. Rate : 058 BPM Atrial Rate : 058 BPM P-R Int : 136 ms QRS Dur : 088 ms QT Int : 424 ms P-R-T Axes : 070 026 052 degrees QTc Int : 416 ms Sinus bradycardia Nonspecific ST abnormality Abnormal ECG Confirmed by SHARLENE SALEEM D.O. ([id number]), editor at large SUJEY KLEIN ([id number]) on 05/21/2017 3:40:20 PM Referred By: HARPER Confirmed By:SHARLENE SALEEM D.O.
[2017-05-21] MEDS: Atorvastatin Calcium 40 MG TAB PO SCH (21:21)
[2017-05-21] MEDS: Acetaminophen 325 MG TAB PO PRN (21:24)
[2017-05-22] MEDS: Levothyroxine Sodium 88 MCG TAB PO SCH (05:06)
[2017-05-22] MEDS: Acetaminophen 325 MG TAB PO PRN (05:10)
--- NOTE | 2017-05-22 06:08 | PDOC.FM ---
- Subjective Subjective: Patient doing well this AM. No significant overnight events. She is ready to go home. Patient denies shortness of breath, chest pain, dizziness upon standing, or GI bleeding. - Objective MAR Reviewed: Yes Vital Signs & Weight: Vital Signs (12 hours) Temp Pulse Resp BP BP Pulse Ox 05/22/17 04:00 98.5 F 64 18 125/58 L 95 05/21/17 21:22 132/60 05/21/17 21:21 74 132/60 05/21/17 20:00 97.8 F 74 18 132/60 05/21/17 18:11 124/60 Weight Weight 68.946 kg I&O: 05/20/17 05/21/17 05/22/17 06:59 06:59 06:59 Intake Total 600 1020 674 Output Total 1300 Balance 600 -280 674 Result Diagrams: 05/22/17 06:20 05/21/17 06:05 EKG Reviewed by me: Yes Radiology Reviewed by me: No <Marlen Kim - Last Filed: 05/22/17 07:46> - Objective Vital Signs & Weight: Vital Signs (12 hours) Temp Pulse Resp BP BP BP Pulse Ox 05/22/17 08:20 60 132/60 05/22/17 08:19 60 132/60 05/22/17 08:00 97.7 F 60 17 129/62 99 05/22/17 04:00 98.5 F 64 18 125/58 L 95 Weight Weight 152 lb I&O: 05/21/17 05/22/17 05/23/17 06:59 06:59 06:59 Intake Total 1020 674 Output Total 1300 Balance -280 674 Result Diagrams: 05/22/17 06:20 05/21/17 06:05 <Sancho Stern - Last Filed: 05/22/17 09:55> Phys Exam - Physical Examination Constitutional: NAD HEENT: moist MMs, sclera anicteric Neck: supple Respiratory: no wheezing, no rales, no rhonchi, clear to auscultation bilateral Cardiovascular: RRR Aortic stenosis Gastrointestinal: soft, non-tender, no distention, positive bowel sounds Musculoskeletal: no edema, pulses present Neurological: non-focal, moves all 4 limbs Psychiatric: normal affect, A&O x 3 Skin: no rash, cap refill <2 seconds <Marlen Kim - Last Filed: 05/22/17 07:46> Dx/Plan (1) Symptomatic anemia Code(s): D64.9 - ANEMIA, UNSPECIFIED Status: Acute (2) CAD (coronary artery disease) Code(s): I25.10 - ATHSCL HEART DISEASE OF [place] CORONARY ARTERY W/O ANG PCTRS Status: Acute QualifierTitle: Coronary Disease-Associated Artery/Lesion type: bypass graft [place] vs. transplanted heart: [place] heart (3) Systolic murmur Code(s): R01.1 - CARDIAC MURMUR, UNSPECIFIED Status: Acute (4) HTN (hypertension) Code(s): I10 - ESSENTIAL (PRIMARY) HYPERTENSION Status: Acute QualifierTitle: Hypertension type: essential hypertension Qualified Code( s): I10 - Essential (primary) hypertension (5) HLD (hyperlipidemia) Code(s): E78.5 - HYPERLIPIDEMIA, UNSPECIFIED Status: Acute QualifierTitle: Hyperlipidemia type: unspecified Qualified Code(s): E78.5 - Hyperlipidemia, unspecified (6) Paroxysmal atrial fibrillation Code(s): I48.0 - PAROXYSMAL ATRIAL FIBRILLATION Status: Acute (7) Hypothyroid Code(s): E03.9 - HYPOTHYROIDISM, UNSPECIFIED Status: Acute QualifierTitle: Hypothyroidism type: acquired Qualified Code(s): E03.9 - Hypothyroidism, unspecified - Plan Plan: Plan: Severe symptomatic anemia: - GI consulted; appreciate recommendations - Eliquis and ASA d/c'd. Will resume ASA only for stroke prophylaxis if Hg stable in next few weeks - Recommend patient follow with PCP within the next week to have Hg rechecked - EGD & colonoscopy performed; small duodenal polyp and one sessile ascending polyp with evidence of diverticular disease on scope - Patient transfused total of 3u pRBC's; given lasix after last unit of blood due to dx of dCHF - Hg 9.0 after transfusion, AM CBC - Patient symptomatically improved CAD s/p 5v CABG: - Continue home medications Systolic heart murmur: - Uncertain whether this has been documented in the past - Echo shows 3/3 dCHF with moderate MR and TR. Elevated pulmonary arterial pressure at 45 mmHg - Cardiology consulted; appreciate recs HTN: - Continue home medications HLD: - Continue home medications Paroxysmal A-fib: - d/c'd eliquis due to severe, symptomatic anemia - In sinus rhythm, rate controlled - Will resume ASA only for stroke prophylaxis if Hg stable in next few weeks Hypothyroid: - Continue home medications Dispo: Home today <Marlen Kim - Last Filed: 05/22/17 07:46> Attending Addendum - Attending Addendum I personally evaluated the patient and discussed the management with Dr. Kim I agree with the History, Examination, Assessment and Plan documented above with any addition or exceptions noted below. She is doing well. Hgb is stable at 9.2. She is going home off of Aspirin and Eliquis. Followup with Dr. Ruby within a week with a CBC. <Sancho Stern - Last Filed: 05/22/17 09:55>
[2017-05-22 06:30] LABS: #Eosinphils 0.2 thou/uL (0.0-0.7); #Lymphocytes 1.2 thou/uL (1.20-3.40); #Monocytes 0.9 thou/uL (0.11-0.59); #Neutrophils 6.8 thou/uL (1.40-6.50); %Basophils 0.1 % (0.0-1.0); %Eosinophils 1.7 % (0.0-10.0); %Lymphocytes 13.3 % (21.0-51.0); %Monocytes 9.5 % (0.0-10.0); Hematocrit 29.7 % (36.0-47.0); Mean Platelet Volume 7.8 fL (7.4-10.4); Red Blood Cell (RBC) Count 3.71 mill/uL (4.20-5.40)
[2017-05-22 08:16] VITALS: TEMP 97.7
[2017-05-22] MEDS: Cyanocobalamin (Vitamin B-12) 1,000 MCG TAB PO SCH (08:19)
[2017-05-22] MEDS: Carvedilol 6.25 MG TAB PO SCH (08:19)
[2017-05-22] MEDS: Ferrous Sulfate 325 MG TAB PO SCH (08:19)
[2017-05-22] MEDS: Amlodipine 5 MG TAB PO SCH (08:19)
[2017-05-22] MEDS: Folic Acid 1 MG TAB PO SCH (08:20)
[2017-05-22] MEDS: Ezetimibe 10 MG TAB PO SCH (08:20)
[2017-05-22] MEDS: Lisinopril 10 MG TAB PO SCH (08:20)
[2017-05-22] MEDS: hydrALAZINE 25 MG TAB PO SCH (08:20)
[2017-05-22 08:22] VITALS: BP 132/60
[2017-05-22] MEDS: Pantoprazole 40 MG VIAL IVP SCH (08:29)
--- NOTE | 2017-05-22 18:48 | DIS-2 ---
DATE OF ADMISSION: 05/19/2017 DATE OF DISCHARGE: 05/22/2017 RESIDENT: Marlen Kim DO ADMITTING ATTENDING: Sancho Stern M.D. DISCHARGE ATTENDING: Sancho Stern M.D. CONSULTATIONS 1. Gastroenterology, David Garvey M.D. 2. Cardiology, Moreno Gonzales M.D. PROCEDURES: 1. Chest x-ray, mild cardiomegaly. 2. EKG sinus bradycardia with nonspecific ST abnormalities. 3. Echocardiogram showed ejection fraction of 55-60% with grade 3/3 diastolic dysfunction, mild bileaflet mitral valve prolapse, moderate mitral regurgitation , mildly dilated left atrium, moderate to severe tricuspid regurg, mildly elevated pulmonary artery pressure estimated at 45 mmHg, mild pulmonic regurgitation, aortic valve calcifications with reduced cusp opening, and mild aortic regurgitation. 4. Esophagoduodenoscopy or EGD with biopsy showed a small hiatal hernia as well as small duodenal polyp. 5. Colonoscopy showed a sessile ascending polyp that was excised with good hemostasis. Additionally, there is some sigmoid diverticular disease and hemorrhoids with what appeared to be fibroepithelial polyp in the rectum. PRIMARY DIAGNOSES: 1. Severe symptomatic microcytic anemia. 2. Sessile ascending colonic polyp, status post polypectomy with good hemostasis. 3. Grade 3/3 diastolic congestive heart failure. SECONDARY DIAGNOSES: 1. Sigmoid diverticular disease. 2. Coronary artery disease. 3. Aortic stenosis. 4. Hypertension. 5. Hyperlipidemia. 6. Paroxysmal atrial fibrillation. 7. Hypothyroidism. DISCHARGE MEDICATIONS: 1. Ferrous sulfate 325 mg oral twice daily with meals. 2. Folic acid 1 mg oral daily. 3. Hydralazine 25 mg oral twice daily with meals. 4. Levothyroxine 88 mcg oral daily. 5. Ezetimibe 10 mg oral daily. 6. Carvedilol 6.25 mg oral twice daily. 7. Atorvastatin calcium 80 mg oral daily. 8. Lisinopril 20 mg oral daily. 9. Amlodipine 5 mg oral daily. DISCONTINUED MEDICATIONS: 1. Eliquis 5 mg oral twice daily. 2. Aspirin 81 mg oral daily. HISTORY OF PRESENT ILLNESS AND HOSPITAL COURSE: This is a 76-year-old female with a history of coronary artery disease as well as paroxysmal atrial fibrillation on low dose aspirin and chronic Eliquis therapy. She presented to the emergency department with 3-month history of intermittent substernal chest pain on exertion as well as dyspnea on exertion, palpitations, dizziness, and generalized weakness. The patient reported that she was initially getting out of breath, having palpitations and dyspnea after walking about a block, but gradually this distance was decreasing. On the night prior to admission she was only able to walk from her bedroom to the kitchen before getting short of breath and her chest starting to hurt. She denies any syncope. She denies any diaphoresis. She denied any associated nausea or vomiting. The patient reported that since Eliquis started 1 year ago, she has been feeling these symptoms. She has never had melanotic stool. She denied hematochezia. She denies any hematemesis or epigastric abdominal pain. The patient reported that she gets lightheaded and has headaches in posterior aspect of her head for which she takes Tylenol, but she denies any NSAID use. Patient denied any fever or chills. She reports that she has never had an upper or lower endoscopic evaluation in the past. The patient presented to the emergency room and was found to have hemoglobin of 5.1. She was admitted to the telemetry floor. Gastroenterology was consulted. FOBT was negative; however, an endoscopy and colonoscopy were performed. EGD did show a duodenal polyp and colonoscopy showed a sessile polyp in the ascending colon that was excised. There was also some evidence of diverticular disease in the sigmoid colon. However, there is no active bleeding or definitive source for bleeding. Dr. Galvan and Dr. Gonzales did evaluate the patient from a cardiac standpoint. An echo was performed which did show grade 3 /[address] Galvan recommended that the Eliquis be held as well as aspirin for the time being. It was recommended that patient follow with Dr. Palma her primary care physician within the next week or two to have her hemoglobin rechecked. If it is stable at that time, then aspirin can be restarted as the only prophylaxis for stroke. The patient remained stable throughout the course of her hospital stay. She was transfused 3 units of packed red blood cells and her hemoglobin went from 5.1 to 9.5. It did remain stable over the course of several days. She had no active bleeding during her stay. She reported after the first 2 units of packed red blood cells, her symptoms resolved almost completely. She felt great and was able to get up and walk around without any difficulty. It was discussed that she did need to follow with Dr. Palma within the next week or two to have her hemoglobin checked again to make sure it was stable. If stable at that time, she can restart aspirin per forestry adviser. Additionally, the patient supposedly has an appointment with Dr. Gonzales on the of this month. It is recommended that she keep that appointment and continue to follow up. DISPOSITION: Stable. DISCHARGE INSTRUCTIONS: 1. Location: Home. 2. Activity: No restrictions. 3. Diet: Heart healthy. 4. Followup: The patient is to follow up with Dr. Palma within the next week to have hemoglobin and hematocrit rechecked as well as to ensure resolution of symptoms. If at that time, her hemoglobin is stable, aspirin can be restarted. Additionally, the patient is to follow with Dr. Gonzales on the of this month as scheduled. DAVID
== END 2017-05-22 10:47 | disposition home or self-care (01) | DRG 812 ==
LOC: ERS 11:02 → 2NO 14:24
PROVIDERS: ADMIT Internal Medicine; ATTEND Internal Medicine
PROC: 0DBK8ZZ Excision of Ascending Colon, Via Natural or Artificial Opening Endoscopic (ICD-10-PCS; principal; 2017-05-21)
PROC: 0DB98ZX Excision of Duodenum, Via Natural or Artificial Opening Endoscopic, Diagnostic (ICD-10-PCS; 2017-05-21)
PROC: 30233N1 Transfusion of Nonautologous Red Blood Cells into Peripheral Vein, Percutaneous Approach (ICD-10-PCS; 2017-05-21)
DX: D50.9 Iron deficiency anemia, unspecified (principal); I48.0 Paroxysmal atrial fibrillation; I11.0 Hypertensive heart disease with heart failure; I50.30 Unspecified diastolic (congestive) heart failure; I48.2 Chronic atrial fibrillation; I08.3 Combined rheumatic disorders of mitral, aortic and tricuspid valves; K57.30 Diverticulosis of large intestine without perforation or abscess without bleeding; I25.10 Atherosclerotic heart disease of native coronary artery without angina pectoris; E78.00 Pure hypercholesterolemia, unspecified; E03.9 Hypothyroidism, unspecified; R01.1 Cardiac murmur, unspecified; K64.9 Unspecified hemorrhoids; K63.5 Polyp of colon; K31.7 Polyp of stomach and duodenum; K44.9 Diaphragmatic hernia without obstruction or gangrene; Z79.01 Long term (current) use of anticoagulants; Z79.82 Long term (current) use of aspirin; Z88.5 Allergy status to narcotic agent; Z95.1 Presence of aortocoronary bypass graft; Z82.49 Family history of ischemic heart disease and other diseases of the circulatory system; Z80.9 Family history of malignant neoplasm, unspecified; M06.9 Rheumatoid arthritis, unspecified
CPT/HCPCS: 36415; 36430; 71010; 80048; 80053; 80061; 82274; 82550; 82553; 82728; 83540; 83550; 83690; 83735; 84100; 84443; 84484; 85025; 85610; 85730; 86850; 86900; 86901; 90471; 90732; 93005; 93306; A4216; C9113; G0009; J1940; J2001; J2704; J3010; P9016

== ENCOUNTER 2018-02-09 06:11 | Day surgery (SDC) | payer MEDICARE ==
[~2018-02-09 06:11] MED LIST: Cyclopentolate 1% Opth Drop 2 ML BOT FS SCH; Fluorouracil 100 MG, Enoxaparin Sodium 25 MG, EPINEPHrine 0.3 MG in Ophthalmic Irrigati... IVPB SCH; Phenylephrine 2.5% Ophth Soln 5 ML BOT FS SCH
[2018-02-09] MEDS ORDERED: Cyclopentolate 1% Opth Drop 2 ML BOT ONE (06:46)
[2018-02-09] MEDS ORDERED: Phenylephrine 2.5% Ophth Soln 5 ML BOT ONE (06:46)
[2018-02-09] MEDS ORDERED: Fentanyl 100 MCG/2 ML VIAL ONE (08:37)
[2018-02-09] MEDS ORDERED: Midazolam HCl 2 mg/2 ml Vial ONE (08:37)
--- NOTE | 2018-02-09 11:09 | OP ---
DATE OF PROCEDURE: 02/09/2018 PREOPERATIVE DIAGNOSIS: Macular hole, left eye. POSTOPERATIVE DIAGNOSIS: Macular hole, left eye. PROCEDURE: Pars plana vitrectomy, internal limiting membrane peel, left eye. SURGEON: Dr. Thierno Villavicencio ANESTHESIA: Local with monitored anesthesia care. PROCEDURE IN DETAIL: The patient was identified in the preoperative holding area. Appropriate conse nt for planned surgical procedure on the left eye had been obtained. The patient was transported to the operative suite. Appropriate cardiopulmonary monitoring established. Local anesthesia obtained using retrobulbar and modified Van lip lid block using 50:50 mixture of 4% lidocaine, 0.75% bupivacai ne. The patient was prepped and draped in the usual sterile manner for ophthalmic surgery on the lef t eye. Lid speculum was placed in the left eye. The 25-gauge trocars were placed in conjunctiva and sclera supratemporally, inferotemporally, and supranasally. Infusion line was placed inferotemporal ly. Light pipe and vitreous cutter were inserted into the eye. Core vitrectomy was performed. Post erior hyaloid face was elevated using vacuum suction and peeled into the periphery using vitreous cut ter, indocyanine green dye was infused in the posterior pole x1, identifying the internal limiting me mbrane. This was elevated using a membrane scraper and peeled across the macula using end-gripping f orceps. Indirect ophthalmoscopy was used to examine the retina 360 degrees. No holes, breaks or tea rs were identified. Complete air fluid exchange was performed with 10 minutes being allowed for flui d to drain posteriorly, 15% perfluoropropane gas was infused into the eye. Trocars were removed. Ey e was noted to retain pressure well. Retrobulbar Kenalog and subconjunctival Ancef were placed. Atr opine and antibiotic ointment was placed and the eye was patched and shielded. The patient was taken to the postoperative recovery unit in good condition having suffered no immediate perioperative estela od. DISCHARGE INSTRUCTIONS: Patient was instructed to keep patch and shield on, avoid lifting or bending , and follow up in the morning with Dr. Villavicencio.
== END 2018-02-09 10:30 | disposition home or self-care (01) ==
LOC: SDC 06:11
PROVIDERS: ATTEND Ophthalmology Retina Specialist
PROC: 08T53ZZ Resection of Left Vitreous, Percutaneous Approach (ICD-10-PCS; principal; 2018-02-09)
PROC: 08NF3ZZ Release Left Retina, Percutaneous Approach (ICD-10-PCS; 2018-02-09)
DX: H35.342 Macular cyst, hole, or pseudohole, left eye (principal); Z79.82 Long term (current) use of aspirin; Z79.899 Other long term (current) drug therapy
CPT/HCPCS: 67025; J0171; J1650; J2250; J3010; J9190

== ENCOUNTER 2020-04-27 10:49 | Inpatient (IN) | payer MEDICARE, MEDICAID ==
--- NOTE | 2020-04-27 11:22 | RAD ---
Chest AP view INDICATION: Heart palpitations COMPARISON: May 19, 2017 FINDINGS: Lungs: Chronic lung changes are stable Cardiac silhouette: Moderate cardiomegaly is stable. Pulmonary vasculature: Normal Pleural spaces: No pleural effusion or pneumothorax is demonstrated. Upper abdomen: No abnormality seen. Osseous structures: No acute osseous abnormality. Additional findings: Sternotomy changes are stable. IMPRESSION: Stable moderate cardiomegaly.
[2020-04-27 11:25] LABS: #Eosinphils 0.2 thou/uL (0.0-0.7); #Lymphocytes 1.1 thou/uL (1.20-3.40); #Monocytes 0.6 thou/uL (0.11-0.59); #Neutrophils 4.6 thou/uL (1.40-6.50); %Basophils 0.5 % (0.0-1.0); %Eosinophils 2.5 % (0.0-10.0); %Lymphocytes 16.8 % (21.0-51.0); %Neutrophils 71.2 % (42.0-75.0); Hemoglobin 11.3 g/dL (12.0-16.0); Mean Corpuscular HGB CONC 32.7 g/dL (32.0-36.0); Mean Corpuscular Volume 94.9 fL (78.0-98.0); Mean Platelet Volume 8.5 fL (7.4-10.4); Platelet Count 132 thou/uL (130-400); RBC Distribution Width 12.7 % (11.5-14.5); Red Blood Cell (RBC) Count 3.63 mill/uL (4.20-5.40); White Blood Cell (WBC) Count 6.5 thou/uL (4.8-10.8)
[2020-04-27 11:47] LABS: ALT (SGPT) 18 U/L (8-55); AST (SGOT) 19 U/L (5-34); Albumin 3.6 g/dL (3.4-4.8); Alkaline Phosphatase 60 U/L (40-110); Anion Gap 12 mmol/L (10-20); BUN (Urea Nitrogen) 18 mg/dL (9.8-20.1); Bilirubin, Total 0.7 mg/dL (0.2-1.2); Calc. Creatinine Clearance 0 mL/min (70-130); Calcium 9.2 mg/dL (7.8-10.44); Carbon Dioxide 26 mmol/L (23-31); Chloride 107 mmol/L (98-107); Estimated GFR-MDRD 67; Globulin 3.2 g/dL (2.4-3.5); Glucose 160 mg/dL (83-110); Potassium 3.6 mmol/L (3.5-5.1); Protein, Total 6.8 g/dL (6.0-8.3); Sodium 141 mmol/L (136-145)
--- NOTE | 2020-04-27 12:31 | PDOC.FPRHP ---
- History of Present Illness Chief Complaint: palpitations History of Present Illness: Pt is an 79 yo female with hx of a fib, HTN, CAB, CABG who presents with palpitations and chest pressure. Palpitations and chest pressure started at 8pm on evening prior to admission while she was sitting on the couch resting. It felt like her heart was "beating funny" and the feeling traveled into her neck. It resolved on its own. The next morning she experienced similar symptoms when getting up and moving around, this was associated with sweating. She has a history of a fib, is on aspirin only. She seems confused as to why she is not on any other anticoagulation. She has seen Dr. Gonzales, cardiology, in the past but hasn't seen him in 3-4 years. Denies SOB, recent illness, orthopnea, N/V. ED Course: 500 mL NS - Allergies/Adverse Reactions Allergies Allergy/AdvReac Type Severity Reaction Status Date / Time No Known Allergies Allergy Verified 04/27/20 21:58 - Home Medications Medication Instructions Recorded Confirmed Type Atorvastatin Calcium 80 mg PO DAILY 05/19/17 04/27/20 History Carvedilol 6.25 mg PO BID 05/19/17 04/27/20 History Ezetimibe 10 mg PO DAILY 05/19/17 04/27/20 History Levothyroxine Sodium 88 mcg PO DAILY 05/19/17 04/27/20 History Lisinopril 20 mg PO BID 05/19/17 04/27/20 History hydrALAZINE [Apresoline] 100 mg PO BID-WM 05/19/17 04/27/20 History Ferrous Sulfate [Feosol] 325 mg PO BID- #60 tab 05/22/17 04/27/20 Rx Folic Acid [Folvite] 1 mg PO DAILY #30 tab 05/22/17 04/27/20 Rx Aspirin [Ecotrin] 81 mg PO DAILY 02/08/18 04/27/20 History - History PMHx: CAD, a fib, anemia, HTN, HLD, severe aortic stenosis, hypothyroidism PSHx: CABG x4, eye surgery FHx: mom- heart disease Social: No T/A/D. Lives alone, has one living sister. No MPOA - Review of Systems General: denies: fever/chills, weight/appetite/sleep changes Eyes: denies: eye pain, vision changes ENT: denies: nasal congestion, rhinorrhea Respiratory: denies: cough, congestion, shortness of breath Cardiovascular: reports: palpitation. denies: chest pain, edema, orthopnea Gastrointestinal: denies: nausea, vomiting, diarrhea, abdominal pain Genitourinary: denies: incontinence, dysuria Skin: denies: rashes, lesions Musculoskeletal: denies: pain, tenderness Neurological: denies: numbness, syncope, weakness - Vital signs BP: 130/87, Pulse: 98, Resp: 20, Temp: 98 (Oral), O2 sat: 97 on (Room Air) - Physical Exam Constitutional: NAD, awake, alert and oriented HEENT: normocephalic and atraumatic, grossly normal vision, grossly normal hearing Neck: supple, FROM Chest: no-tender to palpation, no lesions -Heart: irregular rhythm, regular rate, 3/6 systolic murmur heard at upper sternal border with radiation into L carotid, also heard at apex of heart Lungs: CTAB, no respiratory distress, no wheezing Abdomen: soft, non-tender, no masses/distention Musculoskeletal: normal structure, normal tone, ROM grossly normal -Musculoskeletal: hands appear to have chronic arthritic changes Neurological: no focal deficit, CN II-XII intact Skin: no rash/lesions, capillary refill <2 seconds, no jaundice Heme/Lymphatic: no unusual bruising or bleeding Psychiatric: normal mood and affect, intact recent and remote memory FMR H&P: Results - Labs Result Diagrams: 04/28/20 04:37 04/28/20 04:37 Lab results: WBC 6.5 thou/uL (4.8-10.8) 04/27/20 11:08 Hgb 11.3 g/dL (12.0-16.0) L 04/27/20 11:08 Hct 34.5 % (36.0-47.0) L 04/27/20 11:08 MCV 94.9 fL (78.0-98.0) 04/27/20 11:08 Plt Count 132 thou/uL (130-400) 04/27/20 11:08 Neutrophils % 71.2 % (42.0-75.0) 04/27/20 11:08 Sodium 141 mmol/L (136-145) 04/27/20 11:08 Potassium 3.6 mmol/L (3.5-5.1) 04/27/20 11:08 Chloride 107 mmol/L (98-107) 04/27/20 11:08 Carbon Dioxide 26 mmol/L (23-31) 04/27/20 11:08 BUN 18 mg/dL (9.8-20.1) 04/27/20 11:08 Creatinine 0.82 mg/dL (0.6-1.1) 04/27/20 11:08 Glucose 160 mg/dL (83-110) H 04/27/20 11:08 Calcium 9.2 mg/dL (7.8-10.44) 04/27/20 11:08 Total Bilirubin 0.7 mg/dL (0.2-1.2) 04/27/20 11:08 AST 19 U/L (5-34) 04/27/20 11:08 ALT 18 U/L (8-55) 04/27/20 11:08 Alkaline Phosphatase 60 U/L (40-110) 04/27/20 11:08 Serum Total Protein 6.8 g/dL (6.0-8.3) 04/27/20 11:08 Albumin 3.6 g/dL (3.4-4.8) 04/27/20 11:08 - EKG Interpretation EKG: reviewed, a fib, normal rate FMR H&P: A/P - Problem List (1) Atypical chest pain Current Visit: Yes Status: Acute Code(s): R07.89 - OTHER CHEST PAIN (2) CAD (coronary artery disease) Current Visit: No Status: Acute Code(s): I25.10 - ATHSCL HEART DISEASE OF [place] CORONARY ARTERY W/O ANG PCTRS Qualifiers: Coronary Disease-Associated Artery/Lesion type: bypass graft [place] vs. transplanted heart: [place] heart (3) HLD (hyperlipidemia) Current Visit: No Status: Acute Code(s): E78.5 - HYPERLIPIDEMIA, UNSPECIFIED Qualifiers: Hyperlipidemia type: unspecified Qualified Code(s): E78.5 - Hyperlipidemia, unspecified (4) HTN (hypertension) Current Visit: No Status: Acute Code(s): I10 - ESSENTIAL (PRIMARY) HYPERTENSION Qualifiers: Hypertension type: essential hypertension Qualified Code(s): I10 - Essential (primary) hypertension (5) Paroxysmal atrial fibrillation Current Visit: No Status: Acute Code(s): I48.0 - PAROXYSMAL ATRIAL FIBRILLATION - Plan 79yo female with hx of CAD, CABG and a fib who presents with palpitation/atypical chest pain #Atypical CP -trop 0.018, will trend -CXR:cardiomegaly -Heart score 6 -Echo 2017: EF 55-60%, grade 3/3 diastolic dysfunction, mod-severe TR, calcifications of aortic valve -pending repeat echo -NM stress test ordered for am. Hold BB. NPO at midnight -nitro prn, hold before stress test -consider consulting cardiology based on results of above studies #a fib -currently rate controlled -takes aspirin at home but not on other anticoagulation -may need to get records from PCP or cardiology #CAD -CABG x 4 in 2012 -pending fasting lipid panel -continue home meds #HTN -has had some elevated BPs in the ED -will start on anti-hypertensives but needs accurate med rec #hypothyroidism -TSH 2.9 -continue home meds #normocytic anemia -has known hx of anemia, on iron supplementation -H/H 11.3/34.5, MCV 94 Code: DNR PCP: Louie Diet: HH, NPO midnight IVF: SL Dispo: admit to tele obs, pending stress test and echo, LOS<48hrs FMR H&P: Upper Level - Pertinent history Patient is a 79 yo female with extensive past cardiac history who presents with complaint of palpitations and chest pressure that started yesterday and has continued to occur intermittently. It has been accompanied by some diaphoresis. Pressure sensation radiates into the neck only. She denies any nausea, vomiting, pain, indigestion, heartburn, orthopnea, dyspnea SOB, cough, congestion, fever/chills. Has occasional headaches in back of head. Patient has hx of 4VCABG in 2012. Follows with metal roofing mechanic Dr. Gonzales, last saw 3-4 years ago. Records from [address] Galvan & Dr. Gonzales in the hospital. Was previously on Eliquis for AFib but patient says it was stopped 3-4 years ago and unsure about the reason for why. It appears from medical record that Eliquis was held due to severe anemia and was recommended by Cardiology that patient only continue on Aspirin for stroke prophylaxis at that time. Had negative GI workup at that time. - Pertinent findings General: Well appearing, pleasant affect. Alert, oriented x 3. HEENT: Normocephalic, atraumatic. EOMI. MMM. Nares patent. Heart: Grade III holosystolic murmur heard throughout, loudest over aortic valve, radiates to left carotid. Irregular rate and rhythm. Lungs: CTAB. Abdomen: Soft, nontender, nondistended. Extremities: No edema. Moves all 4 extremities. Arthritic appearing hands. Neuro: Nonfocal. Gross sensation normal. Skin: No rashes. Warm and dry. - Plan Date/Time: 04/27/20 1230 I, Lizzie Song DO, PGY-2, have evaluated this patient and agree with findings/plan as outlined by sales intern resident. Pertinent changes/additions are listed here. Atypical Chest pain, r/o ACS -HEART score of 6 upon admission (age, risk factors, history) -will plan for pharm stress test in the AM -last ECHO in 2017 showed EF 55-60%, severe aortic stenosis, mitral valve prolapse, severe tricuspid regurgitation, and grade 3 diastolic dysfunction ->will repeat ECHO with this admission -consider Cardiology consult once studies result, will notify Dr. Gonzales of admission -risk stratification labs including TSH, FLP Paroxysmal AFib -currently rate controlled -holding home beta ruby for stress test -is only on ASA at home for stroke prophylaxis, was previously on Eliquis but this was discontinued in 2017 Hx of CAD -s/p 4V-CABG in 2012 -continue home medications HTN -BP currently controlled -continue home medications, noted recent increase of Hydralazine by PCP Dr. Palma HLD -continue home statin Hypothyroidism -TSH 2.9 -continue home meds Normocytic anemia -known hx of anemia -continue on iron supplementation -H/H 11.3/34.5, MCV 94 Code: DNR-DNI Diet: HH, NPO midnight IVF: SL PCP: Louie Dispo: Stable, admit to observation on telemetry unit. Anticipate LOS < 48 hrs. Addendum - Attending - Attending Attestation Date/Time: 04/28/20 0884 I personally evaluated the patient and discussed the management with Dr. Tadeo I agree with the History, Examination, Assessment and Plan documented above with any addition or exceptions noted below. Prior history of anemia with GI w/u presumed negative may reconsider DOAC.
[2020-04-27 13:22] LABS: Bacteria/HPF 3+ HPF (None Seen); Bilirubin Negative (Negative); Blood, Urine Negative (Negative); Clarity Turbid (Clear); Glucose, Urine (Dipstick) Normal (Negative); Ketone, Urine Negative (Negative); Leukocyte 250 Leu/uL (Negative); Nitrite Negative (Negative); Protein, Urine (Dipstick) Negative (Neg-Trace); RBC/HPF 0-3 HPF (0-3); Specific Gravity, Urine 1.014 (1.002-1.036); Squamous Epithelial 0-3 HPF (0-3); Urobilinogen Normal mg/dL (Less than 2); WBC/HPF 21-50 HPF (0-3); pH, Urine 5.5 (5.0-9.0)
[2020-04-27] MEDS ORDERED: Acetaminophen 325 MG TAB PO PRN (13:58)
[2020-04-27] MEDS ORDERED: Ondansetron ODT 4 MG TAB PO PRN (13:58)
[2020-04-27 15:21] LABS: Troponin I 0.031 ng/mL (< 0.028)
[2020-04-27] MEDS ORDERED: Nitroglycerin 0.4 MG TAB (25 Tab Bottle) SL PRN (15:59)
[2020-04-27 18:09] LABS: Troponin I 0.038 ng/mL (< 0.028)
[2020-04-27] MEDS: hydrALAZINE 25 MG TAB PO SCH ×2 (20:53→20:57)
[2020-04-27] MEDS: Lisinopril 20 MG TAB PO SCH (20:59)
[2020-04-27 21:59] VITALS: BMI 21.1
[2020-04-27 22:26] LABS: Troponin I 0.027 ng/mL (< 0.028)
[2020-04-28 04:46] LABS: #Basophils 0.1 thou/uL (0.0-0.2); #Eosinphils 0.2 thou/uL (0.0-0.7); #Lymphocytes 1.4 thou/uL (1.20-3.40); #Monocytes 0.6 thou/uL (0.11-0.59); #Neutrophils 3.4 thou/uL (1.40-6.50); %Eosinophils 3.9 % (0.0-10.0); %Lymphocytes 24.8 % (21.0-51.0); %Monocytes 10.9 % (0.0-10.0); %Neutrophils 59.5 % (42.0-75.0); Hemoglobin 10.7 g/dL (12.0-16.0); Mean Corpuscular HGB CONC 32.5 g/dL (32.0-36.0); Mean Corpuscular Hemoglobin 30.9 pg (27.0-31.0); Mean Corpuscular Volume 95.1 fL (78.0-98.0); Mean Platelet Volume 8.1 fL (7.4-10.4); Platelet Count 121 thou/uL (130-400); RBC Distribution Width 12.8 % (11.5-14.5); Red Blood Cell (RBC) Count 3.46 mill/uL (4.20-5.40); White Blood Cell (WBC) Count 5.8 thou/uL (4.8-10.8)
[2020-04-28 05:09] LABS: ALT (SGPT) 16 U/L (8-55); AST (SGOT) 17 U/L (5-34); Albumin 3.3 g/dL (3.4-4.8); Alkaline Phosphatase 51 U/L (40-110); Anion Gap 10 mmol/L (10-20); BUN (Urea Nitrogen) 17 mg/dL (9.8-20.1); Bilirubin, Total 0.6 mg/dL (0.2-1.2); Calc. Creatinine Clearance 57 mL/min (70-130); Calcium 8.7 mg/dL (7.8-10.44); Carbon Dioxide 30 mmol/L (23-31); Cardiac Risk 2.3 (Less than 4.5); Chloride 107 mmol/L (98-107); Cholesterol 91 mg/dl (< 200 Desired); Estimated GFR-MDRD 70; Globulin 2.7 g/dL (2.4-3.5); Glucose 86 mg/dL (83-110); HDL Cholesterol 40 mg/dL (>60 Neg Risk); LDL Cholesterol, Calculated 40 mg/dL; Potassium 3.7 mmol/L (3.5-5.1); Sodium 143 mmol/L (136-145); Triglycerides 55 mg/dL (Less than 150)
[2020-04-28] MEDS: Levothyroxine Sodium 88 MCG TAB PO SCH (05:22)
--- NOTE | 2020-04-28 05:28 | PDOC.FM ---
- Subjective Subjective: Patient was resting comfortably in bed. Denies CP, COB, Abdominal Pain. She is hungry and requesting food. Reminded her of her procedure this morning and why she is NPO. Reports suprapubic tenderness, but denies dysuria - Objective MAR Reviewed: Yes Vital Signs & Weight: Vital Signs (12 hours) Temp Pulse Resp BP Pulse Ox 04/28/20 03:45 98.6 F 72 14 175/81 H 96 04/28/20 00:25 99 04/27/20 22:57 71 176/75 H 04/27/20 20:57 86 04/27/20 19:20 98.2 F 86 16 181/91 H 99 Weight Weight 63.049 kg I&O: 04/26/20 04/27/20 04/28/20 06:59 06:59 06:59 Intake Total 400 Balance 400 Result Diagrams: 04/28/20 04:37 04/28/20 04:37 EKG Reviewed by me: Yes (Afib 60s-80s) Phys Exam - Physical Examination Constitutional: NAD HEENT: moist MMs Neck: supple, full ROM Respiratory: no wheezing, clear to auscultation bilateral irregularly irregular; systolic murmur Gastrointestinal: soft, no distention, positive bowel sounds suprapubic tenderness Musculoskeletal: no edema Neurological: non-focal Psychiatric: normal affect Skin: no rash Dx/Plan - Plan Plan: Atypical CP -trop 0.018, will trend -CXR:cardiomegaly -Heart score 6 -Echo 2017: EF 55-60%, grade 3/3 diastolic dysfunction, mod-severe TR, calcifications of aortic valve -pending repeat echo -stress test and echo this AM -nitro prn, hold before stress test -consider consulting cardiology based on results of above studies A fib -currently rate controlled -takes aspirin at home but not on other anticoagulation -will review patient's records today -consider dc with event recorder and f/u with cards UTI -suprapubic tenderness, no dysuria -Urine cx: gram negative rods -will start bactrim for 3 days CAD -CABG x 4 in 2012 -LDL: 40, Chol: 91, Tri; HDL: 40 -continue home meds HTN -has had some elevated BPs in the ED -will start on anti-hypertensives -will review patient's records hypothyroidism -TSH 2.9 -continue home meds normocytic anemia -has known hx of anemia, on iron supplementation -H/H 11.3/34.5, MCV 94 Dispo: admit to tele obs, pending stress test and echo, LOS<48hrs Addendum - Attending - Attending Attestation Date/Time: 04/28/20 2721 I personally evaluated the patient and discussed the management with Dr. Serrato I agree with the History, Examination, Assessment and Plan documented above with any addition or exceptions noted below. If stress is WNL and echo taken can d/c home. Bactrim for UTI. Event recorder outpatient.
--- NOTE | 2020-04-28 11:05 | NM ---
NM Cardiac Stress W EF WF History: Chest pain Comparison: Stress test thousand 13 Findings: Stress and rest performed after the intravenous administration of 29 and 10.2 mCi technetiu m 99m sestamibi, respectively. No evidence for reversible ischemia. No large volume scar. Poor septal contractility. Calculated ejection fraction is 41%. Impression: 1. No evidence for scar or ischemia. 2. Poor septal contractility with low ejection fraction of 41%.
[2020-04-28] MEDS: Enoxaparin Sodium 40 MG/0.4 ML SYRINGE SC SCH (11:06)
[2020-04-28] MEDS: Atorvastatin Calcium 40 MG TAB PO SCH (11:06)
[2020-04-28] MEDS: Lisinopril 20 MG TAB PO SCH ×2 (11:06→21:30)
[2020-04-28] MEDS: Aspirin 81 mg Enteric Coated Tablet PO SCH (11:06)
[2020-04-28] MEDS: Ezetimibe 10 MG TAB PO SCH (11:06)
[2020-04-28] MEDS: hydrALAZINE 25 MG TAB PO SCH ×2 (11:13→21:31)
[2020-04-28] MEDS ORDERED: Sulfameth/Trimethoprim DS 800-160mg TAB PO SCH (12:15)
[2020-04-28] MEDS ORDERED: ADENOSINE 60 MG/20 ML VIAL ONE (15:04)
[2020-04-28] MEDS: Ferrous Sulfate 325 MG TAB PO SCH (17:23)
[2020-04-28] MEDS ORDERED: Carvedilol 6.25 MG TAB PO SCH (21:00)
[2020-04-28] MEDS ORDERED: FLU VACC QS2020-21(65YR UP)/PF 240 MCG/0.7 ML SYRINGE IM ONE (21:00)
[2020-04-28] MEDS: Amiodarone 200 MG TAB PO SCH (21:30)
[2020-04-28] MEDS: Carvedilol 6.25 MG TAB PO SCH (21:31)
[2020-04-28] MEDS: Sulfameth/Trimethoprim DS 800-160mg TAB PO SCH (21:31)
--- NOTE | 2020-04-29 00:33 | CON ---
DATE OF CONSULTATION: HISTORY: Noy Edwards is an 79-year-old female followed since November 1997. In 1989, she began to have chest discomfort and saw Dr. Lawler. At that time, she underwent cardiac catheterization. She was told that she had mild coronary artery disease. Two weeks prior to admission in November 1997, she had a dramatic change in that she had 2-3 episodes per day of chest burning. This was associated with exertion and she could not lift anything at all due to this discomfort. She become diaphoretic and mildly short of breath. No nausea or vomiting. She also had several episodes of nocturnal discomfort. This discomfort would be relieved in 2-3 minutes with sublingual nitroglycerin. Also, she had a dramatic reduction in her energy level. Troponin I on admission was 1.3. Echo revealed normal left ventricular function with ejection fraction of 55% to 60% with moderate to severe mitral regurgitation and mild aortic valvular fibrosis. She underwent cardiac catheterization, which revealed mild inferobasal hypokinesis with ejection fraction of 50% to 55%, mild mitral regurgitation. The left main was normal. There was a 40% mid LAD, 80% first diagonal (this had been present since catheterization in 1989). The circumflex had a 95% mid stenosis and a 50% to 60% second obtuse marginal stenosis. The right coronary artery had a 90% mid stenosis. No further procedure was performed on the day of catheterization. Long discussion was held with the patient in regard to therapy-bypass surgery versus two vessel stent placement. Ultimately, she opted for stent placement. The following Tuesday, she underwent placement of GFX stents. The second obtuse marginal was stented with 3.0 x 12 mm stent with reduction from 50% to 0%. In the proximal and mid circumflex, 3.0 x 24 mm stent with reduction from 95% to 0%. The mid to proximal RCA had a 3.0 x 30 mm and 3.0 x 24 mm stent placed with reduction from 80% to 0%. With inflation, she had her usual chest discomfort. She has significant bradycardia with heart rates in the 40s on Cardizem and Kerlone. Cardizem was initially discontinued. Kerlone was discontinued. She was placed on Norvasc. With that, her heart rate was in the 70s and 80s and she denied any further significant bradycardic symptoms. She was discharged on Ticlid 250, Ecotrin one daily, Pravachol, and Norvasc. She did not have any significant chest discomfort after that. In March 2006, she was seen in followup and was to return for Cardiolite treadmill, but never did. She had some chest discomfort at that time, which sounded gastrointestinal in nature and was placed on a proton pump inhibitor, but never returned for followup. I did not see her again until October 2015. Six days prior to that admission, she started developing burning in her chest radiating to her throat, associated with some shortness of breath and diaphoresis, but no nausea or vomiting. This would last approximately 2 minutes. She also noted a fluttering sensation associated with that. She had a more intense episode and presented with a blood pressure of 160/134, heart rate of 99 per minute and was in atrial fibrillation. She was treated with intravenous Cardizem, placed on carvedilol 6.25 b.i.d., and converted to sinus rhythm. Troponin I was in the low intermediate range 0.131. CK-MB was normal. She decided not to undergo cardiac catheterization unless absolutely necessary and so she underwent Lexiscan Cardiolite testing. This revealed inferolateral ischemia. She then underwent catheterization, which revealed severe inferobasal hypokinesis with ejection fraction of 55% to 60%. There was a 20% left main stenosis, 30% mid LAD, first diagonal had a 50% in-stent restenosis. The circumflex had a 30% mid circumflex in-stent restenosis. There was a 70% distal circumflex stenosis before the third obtuse marginal. The second obtuse marginal had a 90% ostial lesion, a 40% in-stent restenosis. The right coronary artery had a 20% mid RCA in-stent stenosis. The right posterior lateral had a 70% followed by 60% stenosis. She then underwent CABG x3 with saphenous vein graft to the first obtuse marginal, second obtuse marginal, and right posterior lateral. She also underwent epicardial maze procedure and left atrial appendage ligation. It was felt there was only minimal disease in the LAD system that was not bypassed. Postoperatively, she did not have any further episodes of atrial fibrillation. She was followed in the office after bypass with complaint of her heart pounding whenever she would lie on her left side. In March 2016, she was found to be back in atrial fibrillation. Aspirin was reduced to 81 mg. She was started on Eliquis 5 mg b.i.d. and returned in April 2016, was placed on Multaq 400 b.i.d. She only took this for a short period of time due to headache and feeling bad whenever she would take it even though she is taking it with food. Echo in April 2016 revealed ejection fraction of 55% to 60% with moderate mitral regurgitation, moderate to severe aortic stenosis with peak gradient of 67 mm, mean gradient of 37 mm, aortic valve area of 1.08 cm2, moderate aortic insufficiency, severe tricuspid regurgitation, and mild pulmonic insufficiency. In August 2016, she was in sinus rhythm. She continued to complain of her heart pounding and she underwent 30-day monitor which did not reveal any atrial fibrillation. In March 2017, she continued to complain of her heart pounding at times when she would lie on her left side. She also began to notice exertional chest pressure. She became so weak that she could hardly get out of bed, came to the emergency room, was found to have a hemoglobin of 5.1. She underwent upper and lower endoscopy without any specific reason being found. She has been off anticoagulation since that time. She was seen in the office in July 2017 and continued to complain of her heart racing; however, she did not return for followup after that. She denies any chest, arm, neck or jaw discomfort, shortness of breath. She denies any chest discomfort like she had prior to bypass surgery. She states she continues to work around her house, raking leaves, doing yard work without any symptoms. She then had onset of a feeling of irregular heartbeat and palpitations and came to the emergency room, was found to be in atrial fibrillation. 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 PAST SURGICAL HISTORY: 1. CABG x3 with maze procedure and left atrial appendage ligation. 2. Cataract surgery. MEDICATIONS: 1. Aspirin 81 daily. 2. Atorvastatin 80 daily. 3. Carvedilol 6.25 b.i.d. 4. Zetia 10 daily. 5. Ferrous sulfate 325 b.i.d. 6. Folic acid 1 mg daily. 7. Apresoline 100 mg b.i.d. 8. Levothyroxine 100 mcg daily. 9. Lisinopril 20 mg b.i.d. ALLERGIES: HYDROCODONE. SOCIAL HISTORY: She has never smoked. She does not drink. FAMILY HISTORY: Mother of a myocardial infarction at age 69. REVIEW OF SYSTEMS: 12-point review of systems otherwise unremarkable. PHYSICAL EXAMINATION: VITAL SIGNS: Blood pressure 166/87, pulse of 99. HEENT: PERRL. NECK: Supple. CHEST: Clear. CARDIAC: S1 and S2 normal without any S3 or S4. There is a 2-3/6 systolic ejection murmur in the aortic area. Carotid upstroke somewhat diminished with radiating murmur. ABDOMEN: Normal bowel sounds without tenderness organomegaly. EXTREMITIES: Revealed no clubbing, cyanosis, or edema. NEUROLOGIC: Grossly intact. SKIN: Warm and dry. LABORATORY DATA: EKG revealed atrial fibrillation with fast ventricular response of 103 per minute, finding of left ventricular hypertrophy, specific ST and T-wave abnormality. Hemoglobin 10.7, hematocrit 32.9, white count 5800, platelets 121,000. Sodium 143, potassium 3.7, chloride 107, carbon dioxide 30, BUN 17, creatinine 0.79. Troponin I up to 0.038. Cholesterol 91, triglycerides 55, HDL 40, LDL 40. TSH is normal. She underwent Cardiolite testing, which revealed no evidence of this ischemia or scar. There was poor septal contractility (CABG) with ejection fraction of 41%. IMPRESSION: 1. Paroxysmal atrial fibrillation with current episode. She continues to intermittently have episodes of atrial fibrillation. 2. Severe aortic stenosis. However, I am not certain that she is symptomatic from that. She denies any chest discomfort, shortness of breath, peripheral edema, etc. 3. Status post coronary artery bypass graft x3. 4. History of maze procedure and left atrial appendage ligation. 5. Gastrointestinal bleeding with anticoagulation with no specific etiology being found. 6. Hypertension. 7. Hypercholesterolemia under good control. 8. Hypothyroidism. 9. Positive family history. RECOMMENDATIONS: Echocardiogram has been performed and this will be reviewed. I will load her with amiodarone and that will help suppressing her atrial fibrillation. Consideration can be given to transesophageal echo to document that her left atrium is indeed closed and if it is, then she does not need anticoagulation and thought could then be given to electrical cardioversion. Certainly at some time, she will probably need aortic valve replacement. However, at the present time, she appears to be asymptomatic in regard to that. Job ID: [id number] [facility]
[2020-04-29] MEDS ORDERED: Lidocaine 1% w/Epinephrine 1:100K 20 ML VIAL ONE (03:22)
[2020-04-29] MEDS: Ondansetron PF 4 MG/2 ML Vial IVP PRN ×2 (03:28→23:15)
[2020-04-29] MEDS ORDERED: Lidocaine Viscous Sol 2% 15 ml UD Cup SSP SCH (03:45)
[2020-04-29] MEDS ORDERED: Lidocaine 1% w/Epinephrine 1:100K 20 ML VIAL NERVE BLCK SCH (03:45)
--- NOTE | 2020-04-29 04:56 | PDOC.BPN ---
- Brief Progress Note Encounter Date: 04/29/20 Encounter Time: 04:15 Responded to page about patient that she had fell and cut her lip while coming back from the bathroom. She did not remember how she fell and began to have some nausea and was vomiting shortly after having fell. It was an unwitnessed fall that occurred some time during the night. Pt did not remember if she had hit her head during the fall. Procedure Name: Laceration Repair Indication: Reduce risk of infection Location: Vermilion Of Lower Lip Pre-Procedure Diagnosis: Laceration Post-Procedure Diagnosis: Repaired Laceration Informed Verbal consent was obtained before procedure started. PROCEDURE: The appropriate timeout was taken. The area was prepped and draped in the usual sterile fashion. A Mental Block was achieved 2cc of Lidocaine 1% with epinephrine on either side of mental foramen . The wound was cleaned appropriately. 5-0 Chromic Gut sutures (2) were placed on inside of lower lip vermilion while 5-0 Prolene sutures (3) were placed on outer edge of lower lip border. Estimated blood loss was less than 0.5 mL. The patient tolerated the procedure well without complications. According to clinic charts, patient had Tdap in February of this year so did not require this at this time. Due to patient's vomiting after an unwitnessed fall, will discuss with day team about a possible CT scan for patient.
[2020-04-29] MEDS: Levothyroxine Sodium 88 MCG TAB PO SCH (05:43)
--- NOTE | 2020-04-29 05:47 | PDOC.FM ---
- Subjective Subjective: Patient had an unwitnessed fall last night. She was using the restroom and walking back to the bed when she believes she became lightheaded and passed out. She suffered laceration to her lip which was repaired (See Dr. Mcclain's note for more details). She experienced some N/V after the event likely due to swallowing blood. This has since resolved but she does reports minimal headache and lip pain. She denies CP, SOB, abdominal pain. - Objective MAR Reviewed: Yes Vital Signs & Weight: Vital Signs (12 hours) Temp Pulse Resp BP Pulse Ox 04/29/20 04:00 97.7 F 70 16 140/65 99 04/29/20 02:45 97.9 F 73 16 145/68 H 96 04/28/20 23:56 82 111/58 L 04/28/20 19:38 97.8 F 76 16 127/85 99 Weight Weight 63.049 kg I&O: 04/27/20 04/28/20 04/29/20 06:59 06:59 06:59 Intake Total 400 600 Balance 400 600 Result Diagrams: 04/29/20 06:33 04/29/20 06:33 EKG Reviewed by me: Yes (Afib rate 70s-80s) Phys Exam - Physical Examination Constitutional: NAD HEENT: moist MMs Bottom lip swollen, repair intact Neck: supple, full ROM Respiratory: no wheezing, no rales, no rhonchi grade 4/6 systolic murmur with radiation to the carotids Gastrointestinal: soft suprapubic tenderness Musculoskeletal: no edema Neurological: non-focal, normal sensation, moves all 4 limbs Psychiatric: normal affect, A&O x 3 Skin: no rash Dx/Plan - Plan Plan: A fib -currently rate controlled -takes aspirin at home but not on other anticoagulation -cardiology consulted: started on amiodarone Atypical CP, resolved -trop 0.018 > 0.031 > 0.038 > 0.027 -CXR:cardiomegaly -Heart score 6 -Echo 2017: EF 55-60%, grade 3/3 diastolic dysfunction, mod-severe TR, calc ifications of aortic valve -stress test: EF of 41%, no infarct -repeat ECHO: EF 55-60%, severe -cardiology consulted: started on amiodarone for Afib, consider LESLIE Unwitnessed fall -could be 2/2 to aortic stenosis -s/p lip repair -will order CT -no neurologic changes noted UTI -suprapubic tenderness, no dysuria -Urine cx: gram negative rods -started on bactrim for 3 days CAD -CABG x 4 in 2013 -LDL: 40, Chol: 91, Tri; HDL: 40 -continue home meds HTN -has had some elevated BPs in the ED -will start on anti-hypertensives -will review patient's records hypothyroidism -TSH 2.9 -continue home meds normocytic anemia -has known hx of anemia, on iron supplementation -H/H 11.3/34.5, MCV 94 Dispo: pending CT results and cardiology recs Addendum - Attending - Attending Attestation Date/Time: 04/29/20 1119 I personally evaluated the patient and discussed the management with Dr. Serrato. I agree with the History, Examination, Assessment and Plan documented above with any addition or exceptions noted below. Fall overnight requiring lac repair. LESLIE per cards. continue amio. hopefully d/c in the next 24-48 hours. upgrade to inpatient.
[2020-04-29 06:48] LABS: #Eosinphils 0.1 thou/uL (0.0-0.7); #Lymphocytes 0.9 thou/uL (1.20-3.40); #Monocytes 0.4 thou/uL (0.11-0.59); #Neutrophils 7.1 thou/uL (1.40-6.50); %Basophils 0.1 % (0.0-1.0); %Eosinophils 0.7 % (0.0-10.0); %Lymphocytes 10.1 % (21.0-51.0); %Monocytes 5.2 % (0.0-10.0); %Neutrophils 83.9 % (42.0-75.0); Hemoglobin 11.2 g/dL (12.0-16.0); Mean Corpuscular HGB CONC 32.7 g/dL (32.0-36.0); Mean Corpuscular Hemoglobin 31.4 pg (27.0-31.0); Mean Corpuscular Volume 96.2 fL (78.0-98.0); Mean Platelet Volume 8.2 fL (7.4-10.4); Platelet Count 132 thou/uL (130-400); RBC Distribution Width 12.6 % (11.5-14.5); Red Blood Cell (RBC) Count 3.55 mill/uL (4.20-5.40); White Blood Cell (WBC) Count 8.4 thou/uL (4.8-10.8)
[2020-04-29 07:09] LABS: Anion Gap 12 mmol/L (10-20); BUN (Urea Nitrogen) 16 mg/dL (9.8-20.1); Calc. Creatinine Clearance 53 mL/min (70-130); Carbon Dioxide 26 mmol/L (23-31); Chloride 104 mmol/L (98-107); Estimated GFR-MDRD 64; Glucose 122 mg/dL (83-110); Magnesium 1.8 mg/dL (1.6-2.6); Phosphorus 3.1 mg/dL (2.3-4.7); Sodium 138 mmol/L (136-145)
[2020-04-29] MEDS: Atorvastatin Calcium 40 MG TAB PO SCH (08:05)
[2020-04-29] MEDS: Ferrous Sulfate 325 MG TAB PO SCH ×2 (08:05→15:38)
[2020-04-29] MEDS: Aspirin 81 mg Enteric Coated Tablet PO SCH (08:05)
[2020-04-29] MEDS: Amiodarone 200 MG TAB PO SCH ×3 (08:05→21:31)
[2020-04-29] MEDS: Folic Acid 1 MG TAB PO SCH (08:06)
[2020-04-29] MEDS: Carvedilol 6.25 MG TAB PO SCH ×3 (08:06→21:31)
[2020-04-29] MEDS: Lisinopril 20 MG TAB PO SCH (08:06)
[2020-04-29] MEDS: hydrALAZINE 25 MG TAB PO SCH ×2 (08:06→21:30)
[2020-04-29] MEDS: Ezetimibe 10 MG TAB PO SCH (08:06)
[2020-04-29] MEDS: Sulfameth/Trimethoprim DS 800-160mg TAB PO SCH ×2 (08:07→21:31)
[2020-04-29] MEDS: Enoxaparin Sodium 40 MG/0.4 ML SYRINGE SC SCH (08:07)
--- NOTE | 2020-04-29 10:49 | CT ---
HEAD CT WITHOUT CONTRAST: Date: 04/29/2020 COMPARISON: None. HISTORY: Recent fall. TECHNIQUE: Axial CT imaging at 5 mm intervals from vertex through skull base without contrast. FINDINGS: The visualized paranasal sinuses and mastoid air cells are well aerated. There is no displaced calvar ial fracture seen. There is atherosclerotic calcification of the cavernous carotid arteries and the distal vertebral art eries. There is multifocal periventricular, deep, and subcortical white matter hypodensity consistent with e xtensive small vessel disease. IMPRESSION: Evidence of prominent small vessel disease. No intracranial hemorrhage or displaced calvarial fractur e. POS: [facility]
[2020-04-30] MEDS: Lisinopril 20 MG TAB PO SCH ×3 (00:17→21:26)
[2020-04-30] MEDS: Levothyroxine Sodium 88 MCG TAB PO SCH (05:18)
--- NOTE | 2020-04-30 06:03 | PDOC.FM ---
- Subjective Subjective: Patient converted to normal sinus rhythm around 0040. Her HR has been in the 50s-60s since. She denies any CP, SOB this morning. She reports that her suprapubic tenderness has improved. - Objective MAR Reviewed: Yes Vital Signs & Weight: Vital Signs (12 hours) Temp Pulse Resp BP BP Pulse Ox 04/30/20 04:07 98.6 F 55 L 14 127/60 98 04/29/20 23:09 68 105/62 04/29/20 21:30 70 162/76 H 04/29/20 19:40 98.1 F 93 16 134/68 97 Weight Weight 63.049 kg I&O: 04/28/20 04/29/20 04/30/20 06:59 06:59 06:59 Intake Total 400 850 320 Output Total 1000 Balance 400 -150 320 Result Diagrams: 04/29/20 06:33 04/29/20 06:33 EKG Reviewed by me: Yes (Afib overnight converting to SR @ 0040) Phys Exam - Physical Examination Constitutional: NAD HEENT: moist MMs Neck: supple, full ROM Respiratory: no wheezing, no rales, no rhonchi, clear to auscultation bilateral Cardiovascular: RRR 4/6 systolic murmur with radiation to the carotids Gastrointestinal: soft, non-tender, no distention, positive bowel sounds Musculoskeletal: no edema Psychiatric: normal affect, A&O x 3 Skin: no rash Dx/Plan - Plan Plan: A fib, resolved -converted to SR at 0040 -takes aspirin at home -cardiology consulted: started on amiodarone and coreg increased; LESLIE scheduled for today to decide if anticoagulation is needed or not -currently NPO for procedure Atypical CP, resolved -trop 0.018 > 0.031 > 0.038 > 0.027 -CXR:cardiomegaly -Heart score 6 -Echo 2017: EF 55-60%, grade 3/3 diastolic dysfunction, mod-severe TR, calcifications of aortic valve -stress test: EF of 41%, no infarct -repeat ECHO: EF 55-60%, severe -cardiology consulted Unwitnessed fall -could be 2/2 to aortic stenosis -s/p lip repair -CT: no acute findings -no neurologic changes noted UTI -suprapubic tenderness, no dysuria -Urine cx: klebsiella, sensitive to bactrim -started on bactrim for 3 days CAD -CABG x 4 in 2013 -LDL: 40, Chol: 91, Tri; HDL: 40 -continue home meds HTN -continue home meds hypothyroidism -TSH 2.9 -continue home meds normocytic anemia -has known hx of anemia, on iron supplementation -H/H 11.3/34.5, MCV 94 Dispo: likely DC home today pending procedure with cardiology and cardiology recs Addendum - Attending - Attending Attestation Date/Time: 04/30/20 4929 I personally evaluated the patient and discussed the management with Dr. Serrato. I agree with the History, Examination, Assessment and Plan documented above with any addition or exceptions noted below. Awaiting LESLIE and recs from cards. Dispo pending results.
[2020-04-30] MEDS: Ferrous Sulfate 325 MG TAB PO SCH ×2 (08:49→16:02)
[2020-04-30] MEDS: Aspirin 81 mg Enteric Coated Tablet PO SCH (08:50)
[2020-04-30] MEDS: Amiodarone 200 MG TAB PO SCH ×2 (08:50→21:26)
[2020-04-30] MEDS: hydrALAZINE 25 MG TAB PO SCH ×2 (08:50→21:26)
[2020-04-30] MEDS: Carvedilol 6.25 MG TAB PO SCH ×3 (08:50→21:27)
[2020-04-30] MEDS: Ezetimibe 10 MG TAB PO SCH (08:50)
[2020-04-30] MEDS: Atorvastatin Calcium 40 MG TAB PO SCH (08:50)
[2020-04-30] MEDS: Folic Acid 1 MG TAB PO SCH (08:50)
[2020-04-30] MEDS: Sulfameth/Trimethoprim DS 800-160mg TAB PO SCH ×2 (08:50→21:26)
[2020-04-30] MEDS: Enoxaparin Sodium 40 MG/0.4 ML SYRINGE SC SCH (08:51)
[2020-04-30] MEDS ORDERED: PROPOFOL 20 ML ONE (12:16)
[2020-05-01] MEDS: Levothyroxine Sodium 88 MCG TAB PO SCH (05:22)
[2020-05-01] MEDS: Atorvastatin Calcium 40 MG TAB PO SCH (08:37)
[2020-05-01] MEDS: Lisinopril 20 MG TAB PO SCH (08:38)
[2020-05-01] MEDS: Aspirin 81 mg Enteric Coated Tablet PO SCH (08:38)
[2020-05-01] MEDS: Amiodarone 200 MG TAB PO SCH (08:39)
[2020-05-01] MEDS: Sulfameth/Trimethoprim DS 800-160mg TAB PO SCH (08:39)
[2020-05-01] MEDS: Ferrous Sulfate 325 MG TAB PO SCH (08:39)
[2020-05-01] MEDS: Ezetimibe 10 MG TAB PO SCH (08:40)
[2020-05-01] MEDS: Enoxaparin Sodium 40 MG/0.4 ML SYRINGE SC SCH ×2 (08:40→08:47)
[2020-05-01] MEDS: Folic Acid 1 MG TAB PO SCH (08:40)
[2020-05-01] MEDS: Carvedilol 6.25 MG TAB PO SCH ×2 (08:53→16:15)
--- NOTE | 2020-05-01 09:01 | OP ---
DATE OF PROCEDURE: 04/30/2020 PROCEDURE PERFORMED: Transesophageal echocardiogram. INDICATIONS: This is an 79-year-old woman with aortic stenosis. DESCRIPTION OF PROCEDURE: The patient was taken to the PACU. The patient was sedated by Anesthesiology. A transesophageal probe was placed into the distal esophagus and stomach. Echocardiographic images were obtained. The transesophageal probe was removed. FINDINGS: 1. Normal left ventricular systolic function. 2. Biatrial enlargement. 3. The aortic valve leaflets are thickened with reduced leaflet excursion. 4. Severe aortic stenosis. 5. Mild aortic regurgitation. 6. Moderate mitral regurgitation. 7. Mild tricuspid regurgitation. 8. Small leak noted in the left atrial appendage. IMPRESSION: Small leak noted in the sutured left atrial appendage. Job ID: [id number]
[2020-05-01] MEDS: hydrALAZINE 25 MG TAB PO SCH (09:54)
--- NOTE | 2020-05-01 10:02 | PDOC.FM ---
- Subjective Subjective: Patient reports that she is doing well this morning. Denies CP, SOB, Abdominal pain. Reports that she was told she could go home by Dr. Gonzales and she would like to do so. She does not have any questions or concerns this morning. - Objective MAR Reviewed: Yes Vital Signs & Weight: Vital Signs (12 hours) Temp Pulse Resp BP BP Pulse Ox 05/01/20 09:54 49 L 158/72 H 05/01/20 08:53 158/72 H 05/01/20 08:42 96 05/01/20 08:38 158/72 H 05/01/20 07:44 98.2 F 47 L 18 171/70 H 96 05/01/20 04:18 98.7 F 50 L 16 141/65 H 95 Weight Weight 59.602 kg I&O: 04/30/20 05/01/20 05/02/20 06:59 06:59 06:59 Intake Total 520 640 Output Total 900 650 Balance -380 -10 Result Diagrams: 04/29/20 06:33 04/29/20 06:33 EKG Reviewed by me: Yes (SB 40s-50s) Phys Exam - Physical Examination Constitutional: NAD HEENT: moist MMs lip healing appropriately Neck: supple, full ROM Respiratory: no wheezing, no rales, no rhonchi, clear to auscultation bilateral Cardiovascular: RRR 4/6 systolic murmur with radiation to the carotids Gastrointestinal: soft, non-tender, no distention Musculoskeletal: no edema Neurological: non-focal, moves all 4 limbs Psychiatric: normal affect, A&O x 3 Skin: no rash Dx/Plan - Plan Plan: A fib, resolved -converted to SR at 0040 -takes aspirin at home -cardiology consulted: started on amiodarone and coreg increased; LESLIE yesterday; KARRIE still open, but patient not candidate for anticoagulation due to hx of GI bleed - amiodarone 400 mg BID x 2 weeks, followed by 200 mg BID x 2 weeks, then 200 mg daily; ready for DC Atypical CP, resolved -trop 0.018 > 0.031 > 0.038 > 0.027 -CXR:cardiomegaly -Heart score 6 -Echo 2017: EF 55-60%, grade 3/3 diastolic dysfunction, mod-severe TR, calcifications of aortic valve -stress test: EF of 41%, no infarct -repeat ECHO: EF 55-60%, severe -cardiology consulted Unwitnessed fall -could be 2/2 to aortic stenosis -s/p lip repair, will need sutures removed outpatient -CT: no acute findings -no neurologic changes noted UTI -suprapubic tenderness, no dysuria -Urine cx: klebsiella, sensitive to bactrim -started on bactrim for 3 days CAD -CABG x 4 in 2012 -LDL: 40, Chol: 91, Tri; HDL: 40 -continue home meds HTN -continue home meds -consider increasing BP meds or adding BP med as patient has been hypertensive hypothyroidism -TSH 2.9 -continue home meds normocytic anemia -has known hx of anemia, on iron supplementation -H/H 11.3/34.5, MCV 94 Dispo: DC home today; f/u outpatient with cardiology and PCP Addendum - Attending - Attending Attestation Date/Time: 05/01/20 4217 I personally evaluated the patient and discussed the management with Dr. Serrato. I agree with the History, Examination, Assessment and Plan documented above with any addition or exceptions noted below. D/C home today. close outpatient follow up needed.
[2020-05-01] MEDS ORDERED: Hydrochlorothiazide 25 MG TAB PO SCH (11:15)
[2020-05-01 11:55] VITALS: TEMP 98.5
[2020-05-01 16:15] VITALS: BP 158/72
[2020-05-02] MEDS ORDERED: Hydrochlorothiazide 25 MG TAB PO SCH (09:00)
--- NOTE | 2020-05-03 17:39 | EKG ---
Test Reason : Blood Pressure : / mmHG Vent. Rate : 103 BPM Atrial Rate : 097 BPM P-R Int : 000 ms QRS Dur : 092 ms QT Int : 354 ms P-R-T Axes : 000 013 136 degrees QTc Int : 463 ms Atrial fibrillation with rapid ventricular response Moderate voltage criteria for LVH, may be normal variant Abnormal ECG T wave inversion I, V4-V6 Confirmed by MARKUS RODRIGUEZ M.D. ([id number]), news video editor JHONATAN LOMBARDI ([id number]) on 05/03/2020 5:39:13 PM Referred By: Confirmed By:MARKUS RODRIGUEZ M.D.
== END 2020-05-01 15:31 | disposition home or self-care (01) | DRG 309 ==
LOC: ERS 10:49 → ERHOLD 13:58 → 2NO 19:28 → OBSVTOIN 04-29 11:00
PROVIDERS: ADMIT Family Medicine; ATTEND Family Medicine
PROC: 0CQ1XZZ Repair Lower Lip, External Approach (ICD-10-PCS; principal; 2020-04-29)
PROC: B24BZZ4 Ultrasonography of Heart with Aorta, Transesophageal (ICD-10-PCS; 2020-04-30)
DX: I48.0 Paroxysmal atrial fibrillation (principal); N39.0 Urinary tract infection, site not specified; K92.2 Gastrointestinal hemorrhage, unspecified; R07.89 Other chest pain; I25.10 Atherosclerotic heart disease of native coronary artery without angina pectoris; F32.9 Major depressive disorder, single episode, unspecified; D50.9 Iron deficiency anemia, unspecified; E78.5 Hyperlipidemia, unspecified; I35.0 Nonrheumatic aortic (valve) stenosis; E78.00 Pure hypercholesterolemia, unspecified; S01.511A Laceration without foreign body of lip, initial encounter; I10 Essential (primary) hypertension; W18.30XA Fall on same level, unspecified, initial encounter; Z66 Do not resuscitate; M06.9 Rheumatoid arthritis, unspecified; E03.9 Hypothyroidism, unspecified; Z95.1 Presence of aortocoronary bypass graft; I25.2 Old myocardial infarction; Z85.118 Personal history of other malignant neoplasm of bronchus and lung; Z79.82 Long term (current) use of aspirin; Z79.890 Hormone replacement therapy; Z79.899 Other long term (current) drug therapy; Z88.6 Allergy status to analgesic agent
CPT/HCPCS: 36415; 36416; 70450; 71045; 78452; 80048; 80053; 80061; 81003; 81015; 83735; 84100; 84443; 84484; 85025; 87077; 87086; 87186; 93005; 93017; 93306; 93312; 94760; 96372; A9500; G0378; J0153; J1650; J2405; J2704; Q0162

== ENCOUNTER 2020-07-25 15:29 | Inpatient (IN) | payer MEDICARE, MEDICAID ==
--- NOTE | 2020-07-25 17:31 | PDOC.FPRHP ---
- History of Present Illness Chief Complaint: Anemia History of Present Illness: Pt is an 79 yo female with PMH significant for iron deficiency anemia, HTN, CAD s/p CABG, paroxysmal a-fib, hyperlipidemia, diverticulosis who presents to the ED for anemia. Dr. Gonzales christophe labs earlier this week and noted a Hgb < 8. He sent her to ER. Her Hgb 3 months ago was > 11. She is currently asymptomatic and states she feels fine. She says she had an episode of anemia 3 years ago and GI workup was non-revealing per her. She currently takes iron but also takes aspirin 81 mg. It does not appear she is on anti-coag for a-fib. She states she was scheduled for a cardiac cath on Tuesday. She denies dark stool, melena, hematochezia, bright red blood per rectum, syncope, falls, LOC, tachycardia. She is currently on amiodarone as well for a-fib. ED Course: In the ED she was ordered 1 U prbc. - Allergies/Adverse Reactions Allergies Allergy/AdvReac Type Severity Reaction Status Date / Time No Known Allergies Allergy Verified 07/25/20 10:56 - Home Medications Medication Instructions Recorded Confirmed Type Atorvastatin Calcium 80 mg PO DAILY 05/19/17 07/25/20 History Ezetimibe 10 mg PO DAILY 05/19/17 07/25/20 History Levothyroxine Sodium 100 mcg PO DAILY 05/19/17 07/25/20 History Lisinopril 20 mg PO BID 05/19/17 07/25/20 History hydrALAZINE [Apresoline] 100 mg PO BID 05/19/17 07/25/20 History Aspirin [Ecotrin Low Strength] 81 mg PO DAILY 02/08/18 07/25/20 History Amiodarone [Cordarone] 200 mg PO DAILY #30 tab 05/01/20 07/25/20 Rx Acetaminophen W/ Codeine [Tylenol 1 tab PO Q6HR PRN 07/25/20 07/25/20 History #3] Cyclobenzaprine [Flexeril] 10 mg PO TID PRN 07/25/20 07/25/20 History Docusate [Colace] 100 mg PO BID 07/25/20 07/25/20 History Ferrous Sulfate [Iron] 325 mg PO BID 07/25/20 07/25/20 History - History PMHx: iron deficiency anemia, hypothyroid, hyperlipidemia, decreased vision, HTN, Aortic Valve Stenosis, paroxysmal a-fib, PVD, Systolic Heart Failure, diverticulosis PSHx: CABG x 3 FHx: non-contributory Social: Denies tobacco, alcohol, drugs; lives alone but feels safe - Review of Systems General: denies: fever/chills, weight/appetite/sleep changes Eyes: denies: eye pain, vision changes ENT: denies: nasal congestion, rhinorrhea Respiratory: denies: cough, shortness of breath Cardiovascular: denies: chest pain, palpitation, edema, orthopnea Gastrointestinal: denies: nausea, vomiting, diarrhea, constipation, GI bleeding Genitourinary: denies: incontinence, dysuria Skin: denies: rashes, lesions Musculoskeletal: denies: pain, tenderness Neurological: denies: numbness, syncope, weakness Psychological: denies: anxiety, depression - Vital signs BP: 171/73 HR: 53 RR: 20 Tmax: 98.2 Pox: 98% on RA Wt: 61 kg - Physical Exam Constitutional: NAD, awake, alert and oriented HEENT: PERRLA, EOMI Neck: FROM, no JVD -Heart: regular rhythm, bradycardia, 3/6 systolic murmur Lungs: CTAB, no respiratory distress, no wheezing Abdomen: soft, non-tender, bowel sounds present, no masses/distention Musculoskeletal: normal tone, ROM grossly normal Neurological: no focal deficit, CN II-XII intact Skin: no rash/lesions, good turgor Heme/Lymphatic: no purpura, no petechia Psychiatric: normal mood and affect, good judgment and insight FMR H&P: Results - Labs Result Diagrams: 07/25/20 17:17 07/25/20 17:17 - EKG Interpretation EKG: Sinus bradycardia, no ST changes FMR H&P: A/P - Plan Pt is an 79 yo female here for worsening anemia: # Asymptomatic Macrocytic and Iron Deficiency Anemia - appears patient could be hypoperliferative with ARC 1.7 - 1 U prbc, < 8 in cardiac patient - Consult GI, plan for scope on Tuesday, clear liquids 07/26 - d/c aspirin at this time - consider peripheral smear in the am # Stable CAD # Hx of Bypass x 3 - d/c aspirin - Dr. Gonzales aware patient is in hospital. Will need to discuss cardiac cath with Dr. Gonzales - no ST changes on EKG # HTN - continue home medications # HLD - continue home medications # Hypothyroid - continue home meds # Systolic Heart Failure - monitor fluid status # Aortic Valve Stenosis # Paroxysmal A-fib - Dr. Gonzales aware pt is in hospital. - continue amiodarone - EKG bradycardic - monitor, normal sinus rhythm - not on anticoag at home # PVD - held ASA Fluids: PO Diet: HH until 07/26 and change to clear liquids Code: Full VTE: SCD's Meds Reconciled from visit - pt does not have medications. She is currently on different medications than her previous discharge. Dispo: admit to medicine inpatient FMR H&P: Upper Level - Plan Date/Time: 07/25/20 1728 I, [], have evaluated this patient and agree with findings/plan as outlined by commercial intern resident. Pertinent changes/additions are listed here.
[2020-07-25 17:43] LABS: #Eosinphils 0.1 thou/uL (0.0-0.7); #Lymphocytes 0.9 thou/uL (1.20-3.40); #Monocytes 0.4 thou/uL (0.11-0.59); %Basophils 0.8 % (0.0-1.0); %Eosinophils 1.3 % (0.0-10.0); %Lymphocytes 20.5 % (21.0-51.0); %Monocytes 9.9 % (0.0-10.0); %Neutrophils 67.6 % (42.0-75.0); Hemoglobin 7.8 g/dL (12.0-16.0); Mean Corpuscular HGB CONC 32.5 g/dL (32.0-36.0); Mean Corpuscular Hemoglobin 33.5 pg (27.0-31.0); Mean Platelet Volume 7.7 fL (7.4-10.4); Platelet Count 135 thou/uL (130-400); RBC Distribution Width 13.5 % (11.5-14.5); Red Blood Cell (RBC) Count 2.32 mill/uL (4.20-5.40); White Blood Cell (WBC) Count 4.5 thou/uL (4.8-10.8)
[2020-07-25 17:52] LABS: ALT (SGPT) 19 U/L (8-55); AST (SGOT) 17 U/L (5-34); Albumin 3.8 g/dL (3.4-4.8); Alkaline Phosphatase 52 U/L (40-110); Anion Gap 10 mmol/L (10-20); BUN (Urea Nitrogen) 23 mg/dL (9.8-20.1); Bilirubin, Total 0.4 mg/dL (0.2-1.2); Calc. Creatinine Clearance 0 mL/min (70-130); Calcium 8.8 mg/dL (7.8-10.44); Carbon Dioxide 25 mmol/L (23-31); Chloride 109 mmol/L (98-107); Globulin 3.1 g/dL (2.4-3.5); Glucose 96 mg/dL (83-110); Iron 26 ug/dL (50-170); Iron Binding Capacity, Total 339 mcg/dL (265-497); Potassium 4.1 mmol/L (3.5-5.1); Protein, Total 6.9 g/dL (5.8-8.1); Sodium 140 mmol/L (136-145)
[2020-07-25 18:17] LABS: Ferritin 33.76 ng/mL (10-291)
[2020-07-25] MEDS ORDERED: Ondansetron PF 4 MG/2 ML Vial IVP PRN (19:00)
[2020-07-25] MEDS ORDERED: Acetaminophen 325 MG TAB PO PRN (19:00)
[2020-07-25] MEDS ORDERED: Ondansetron ODT 4 MG TAB SL PRN (19:00)
[2020-07-25 19:53] VITALS: BMI 20.3
[2020-07-25] MEDS: Docusate 100 MG CAP PO SCH (20:22)
[2020-07-25] MEDS: hydrALAZINE 25 MG TAB PO SCH (20:22)
[2020-07-25] MEDS: Lisinopril 20 MG TAB PO SCH (20:23)
[2020-07-25] MEDS: Ferrous Sulfate 325 MG TAB PO SCH (20:23)
[2020-07-26] MEDS: Levothyroxine Sodium 100 MCG TAB PO SCH (05:41)
[2020-07-26 05:52] LABS: Anion Gap 8 mmol/L (10-20); BUN (Urea Nitrogen) 24 mg/dL (9.8-20.1); Calc. Creatinine Clearance 46 mL/min (70-130); Calcium 8.1 mg/dL (7.8-10.44); Carbon Dioxide 24 mmol/L (23-31); Chloride 109 mmol/L (98-107); Glucose 96 mg/dL (83-110); Potassium 4.2 mmol/L (3.5-5.1); Sodium 137 mmol/L (136-145)
[2020-07-26 06:12] LABS: #Eosinphils 0.1 thou/uL (0.0-0.7); #Lymphocytes 0.7 thou/uL (1.20-3.40); #Monocytes 0.5 thou/uL (0.11-0.59); #Neutrophils 2.7 thou/uL (1.40-6.50); %Basophils 0.5 % (0.0-1.0); %Eosinophils 2.6 % (0.0-10.0); %Lymphocytes 17.7 % (21.0-51.0); %Monocytes 11.9 % (0.0-10.0); %Neutrophils 67.3 % (42.0-75.0); Hemoglobin 8.3 g/dL (12.0-16.0); Mean Corpuscular HGB CONC 32.2 g/dL (32.0-36.0); Mean Corpuscular Hemoglobin 31.6 pg (27.0-31.0); Mean Corpuscular Volume 98.1 fL (78.0-98.0); Mean Platelet Volume 7.7 fL (7.4-10.4); Platelet Count 113 thou/uL (130-400); Platelet Morphology Comment Appears Decreased; RBC Distribution Width 14.8 % (11.5-14.5); Red Blood Cell (RBC) Count 2.61 mill/uL (4.20-5.40)
--- NOTE | 2020-07-26 07:10 | PDOC.FM ---
- Subjective Subjective: Patient has no complaints today. She wishes she could go home. Says she has been having intermittent chest pain for many weeks and that was why she is supposed to have the cath. Denies SOB or CP this AM. - Objective Vital Signs & Weight: Vital Signs (12 hours) Temp Pulse Resp BP Pulse Ox 07/26/20 02:55 98.4 F 19 149/49 H 96 07/25/20 23:45 98.6 F 18 121/59 L 94 L 07/25/20 23:30 98.5 F 17 118/53 L 95 07/25/20 20:22 58 L 07/25/20 19:15 97 Weight Weight 60.691 kg Most Recent Monitor Data Heart Rate from ECG 50 I&O: 07/25/20 07/26/20 07/27/20 06:59 06:59 06:59 Intake Total 900 Balance 900 Result Diagrams: 07/26/20 05:10 07/26/20 05:10 Phys Exam - Physical Examination Constitutional: NAD HEENT: moist MMs, sclera anicteric Neck: no nodes Respiratory: no wheezing, clear to auscultation bilateral Cardiovascular: RRR, no significant murmur Gastrointestinal: soft Musculoskeletal: no edema, pulses present Neurological: non-focal, moves all 4 limbs Lymphatic: no nodes Psychiatric: normal affect Skin: no rash Dx/Plan - Plan Plan: Pt is an 79 yo female here for worsening anemia: # Asymptomatic Macrocytic and Iron Deficiency Anemia - appears patient could be hypoperliferative with ARC 1.7 - Hgb 7.8 > 8.3 s/p 1u pRBC - Consult GI, plan for scope on Tuesday, clear liquids 07/26 - hold aspirin # Stable CAD # Hx of Bypass x 3 - d/c aspirin - Dr. Gonzales aware patient is in hospital. Will need to discuss cardiac cath with Dr. Gonzales - no ST changes on EKG # HTN - continue home medications # HLD - continue home medications # Hypothyroid - continue home meds # Systolic Heart Failure - monitor fluid status # Aortic Valve Stenosis # Paroxysmal A-fib - Dr. Gonzales aware pt is in hospital. - continue amiodarone - EKG bradycardic - monitor, normal sinus rhythm - not on anticoag at home # PVD - held ASA Fluids: PO Diet: HH until 07/26 and change to clear liquids Code: Full VTE: SCD's Meds Reconciled from visit - pt does not have medications. She is currently on different medications than her previous discharge. Dispo: Appreciate GI and Cardiology recs.
[2020-07-26] MEDS: Atorvastatin Calcium 40 MG TAB PO SCH (08:46)
[2020-07-26] MEDS: Ezetimibe 10 MG TAB PO SCH (08:46)
[2020-07-26] MEDS: hydrALAZINE 25 MG TAB PO SCH ×3 (08:46→20:22)
[2020-07-26] MEDS: Ferrous Sulfate 325 MG TAB PO SCH ×2 (08:47→20:23)
[2020-07-26] MEDS: Lisinopril 20 MG TAB PO SCH ×2 (08:47→20:25)
[2020-07-26] MEDS: Docusate 100 MG CAP PO SCH ×2 (08:48→20:22)
--- NOTE | 2020-07-26 11:41 | PRG ---
DATE OF SERVICE: 07/26/2020 Please see note from Dr. Jean Finney for which I agree. The patient was seen, evaluated, discussed and examined with the residents by bedside. Patient basically was admitted last night for a low blood count, is needing a GI workup, is eventually going to get a heart catheterization for increasing chest pain. She states she feels fine. No chest pain or shortness of breath. No change in exam overnight and we will proceed with the GI prep and get a scope tomorrow. Job ID: [id number]
--- NOTE | 2020-07-26 12:53 | CON ---
DATE OF CONSULTATION: 07/26/2020 This is a GI inpatient consultation note. REQUESTING PHYSICIAN: Juan Alberto Roque DO. REASON FOR CONSULTATION: Anemia. HISTORY OF PRESENT ILLNESS: Noy Edwards is a very pleasant 79-year-old woman with a history significant for coronary artery disease, status post CABG as well as aortic stenosis and systolic congestive heart failure. She was sent to the hospital and admitted yesterday under the direction of her opto mechanical technician, Dr. Gonzales for evaluation of anemia. She does have a history of chronic mild iron deficiency anemia for which she takes iron twice daily. She takes a daily aspirin, but no other anticoagulation or anti-platelet agents. Her hemoglobin was found to have dropped from 11.2 last April, down to 7.7 here on admission. She has some intermittent chest discomfort with exertion, but she denies any gastrointestinal symptoms such as nausea, vomiting, diarrhea, melena, or hematochezia. Intermittent constipation is well controlled with stool softeners as needed. Notably, she had a prior hospitalization with more severe anemia back in May of 2017. This was found to be related to iron deficiency. She had upper and lower endoscopy in May of 2017. The EGD just showed a small hiatal hernia as well as duodenal polyp, which was benign on histology, and the colonoscopy showed a single, sessile polyp which was removed, but not retrieved as well as diverticulosis and internal hemorrhoids. REVIEW OF SYSTEMS: Full review of systems including constitutional, head, eyes, ears, nose, throat, GI, , cardiovascular, respiratory, musculoskeletal, and neurologic systems is negative except as noted in the HPI. PAST MEDICAL HISTORY: Aortic stenosis, systolic congestive heart failure, peripheral vascular disease, coronary artery disease, coronary artery bypass graft surgery, hypertension, atrial fibrillation, hyperlipidemia, diverticulosis, colon polyp in 2017. ALLERGIES: NO KNOWN DRUG ALLERGIES. OUTPATIENT MEDICATIONS: 1. Atorvastatin. 2. Zetia. 3. Levothyroxine. 4. Lisinopril. 5. Hydralazine. 6. Aspirin 81 mg daily. 7. Amiodarone. 8. Tylenol No. 3 p.r.n. 9. Flexeril p.r.n. 10. Colace 100 mg b.i.d. 11. Ferrous sulfate 325 mg p.o. b.i.d. SOCIAL HISTORY: No tobacco, alcohol, or drug abuse. Lives alone. FAMILY HISTORY: Noncontributory. PHYSICAL EXAMINATION: VITAL SIGNS: Temperature of 98.7, pulse 58, blood pressure 139/57, 97% oxygen saturation on room air. GENERAL: An 79-year-old woman lying in bed comfortably, in no distress. Appearing frail, but nontoxic. SKIN: She is a bit pale. No jaundice. No rashes were palpable. EYES: No scleral icterus. Extraocular movements intact. ENT: Mucous membranes moist. No oral lesions. LYMPHS: No submandibular or supraclavicular lymphadenopathy. THYROID: Nontender to palpation. HEART: Regular rate and rhythm with systolic murmur. LUNGS: Clear to auscultation bilaterally. ABDOMEN: Nondistended. Bowel sounds present. Soft and nontender to palpation. EXTREMITIES: No peripheral edema. VESSELS: Radial pulses 2+ bilaterally. NEUROLOGIC: Cranial nerves 2 through 12 intact bilaterally. No focal deficits. LABORATORY STUDIES: Hemoglobin on admission was 7.7 with MCV 103; after 1 unit of RBC, hemoglobin is 8.3 this morning; WBC 4.5, platelets 113. Sodium 137, potassium 4.2, BUN 24, creatinine 0.97. LFTs are all normal with total bilirubin 0.4, alkaline phosphatase 52, AST 17, ALT 19, albumin 3.8. Ferritin is normal range at 33.76. Iron is low at 26, TIBC normal at 339. Folic acid is 35. Vitamin B12 is normal at 226. ASSESSMENT: 1. Iron deficiency anemia, acute on chronic. 2. Severe aortic stenosis. 3. Coronary artery disease, on aspirin but no other anticoagulation or anti-platelet agents. PLAN: We did review the results of her essentially negative gastrointestinal bleeding workup from May 2017. This was just over 3 years ago. She did have a colon polyp at that time. There is no overt bleeding here, but she has had significant worsening of anemia despite ongoing iron supplementation. It would be reasonable to consider repeat endoscopic investigation to evaluate for new occult bleeding lesion. We will go ahead and plan for EGD/colonoscopy tomorrow after bowel preparation tonight. Further recommendations following EGD/colonoscopy. Thank you for the consultation. Please call anytime with questions or concerns. Job ID: [id number]
--- NOTE | 2020-07-26 14:38 | HP ---
Please see the history and physical done by Dr. Juan Alberto Roque for which I agree. Patient was seen, evaluated, discussed, and examined with the residents. HISTORY OF PRESENT ILLNESS: An 79-year-old female with history of known iron deficiency anemia, but her hemoglobin was even lower. This week as an outpatient, Cardiology checked it and so is coming in for a unit of blood and then for GI workup. It is already lined up for the and eventually a heart catheterization is lined up for the . She does not feel bed, has had some chest pain recently, but is doing better. ALLERGIES: ALL PER THE RESIDENT'S HISTORY AND PHYSICAL FOR WHICH I AGREE. HOME MEDICATIONS: All per the resident's history and physical for which I agree. PAST MEDICAL HISTORY: All per the resident's history and physical for which I agree. PAST SURGICAL HISTORY: All per the resident's history and physical for which I agree. FAMILY HISTORY: All per the resident's history and physical for which I agree. SOCIAL HISTORY: All per the resident's history and physical for which I agree. REVIEW OF SYSTEMS: All per the resident's history and physical for which I agree. PHYSICAL EXAMINATION: GENERAL: Significant for her being breathing comfortably. Blood pressure was a little bit elevated initially. HEENT: Conjunctiva slightly pale. Moist mucosa. CHEST: Clear. HEART: Regular rate and rhythm. ABDOMEN: Benign. EXTREMITIES: No edema. LABORATORY DATA: Blood workup reviewed and most prominent for a hemoglobin of 7.8. ASSESSMENT AND PLAN: 1. Iron deficiency anemia. We will get a GI workup, see if she is actively bleeding. Current studies pending this is a potentially chronic disease. We will get a full anemia workup as well. Actually, iron did come back low, so it does look like an iron deficiency. 2. Coronary artery disease with some exacerbation, for a heart catheterization in a couple of days once we get her hemoglobin up. Job ID: [id number]
[2020-07-26] MEDS ORDERED: GoLYTELY 4,000 ml Bottle PO SCH (17:00)
[2020-07-27 05:15] LABS: #Basophils 0.1 thou/uL (0.0-0.2); #Eosinphils 0.1 thou/uL (0.0-0.7); #Lymphocytes 0.7 thou/uL (1.20-3.40); #Monocytes 0.4 thou/uL (0.11-0.59); #Neutrophils 2.3 thou/uL (1.40-6.50); %Basophils 1.5 % (0.0-1.0); %Eosinophils 2.3 % (0.0-10.0); %Neutrophils 64.2 % (42.0-75.0); Hemoglobin 8.7 g/dL (12.0-16.0); Mean Corpuscular HGB CONC 32.3 g/dL (32.0-36.0); Mean Corpuscular Hemoglobin 31.4 pg (27.0-31.0); Mean Corpuscular Volume 97.2 fL (78.0-98.0); Mean Platelet Volume 7.7 fL (7.4-10.4); Platelet Count 120 thou/uL (130-400); RBC Distribution Width 14.6 % (11.5-14.5); Red Blood Cell (RBC) Count 2.78 mill/uL (4.20-5.40); White Blood Cell (WBC) Count 3.6 thou/uL (4.8-10.8)
[2020-07-27] MEDS: Levothyroxine Sodium 100 MCG TAB PO SCH (05:19)
[2020-07-27 05:41] LABS: Anion Gap 8 mmol/L (10-20); BUN (Urea Nitrogen) 18 mg/dL (9.8-20.1); Calc. Creatinine Clearance 44 mL/min (70-130); Calcium 8.2 mg/dL (7.8-10.44); Carbon Dioxide 28 mmol/L (23-31); Chloride 107 mmol/L (98-107); Glucose 84 mg/dL (83-110); Sodium 139 mmol/L (136-145)
--- NOTE | 2020-07-27 07:10 | PDOC.FM ---
- Subjective Subjective: Ms. Edwards was gone to scopes this morning. - Objective Vital Signs & Weight: Vital Signs (12 hours) Temp Pulse Resp BP Pulse Ox 07/27/20 05:06 97.3 F L 43 L 16 137/68 97 07/26/20 20:22 49 L 07/26/20 20:20 98 Weight Weight 60.691 kg Most Recent Monitor Data Heart Rate from ECG 50 I&O: 07/26/20 07/27/20 07/28/20 06:59 06:59 06:59 Intake Total 900 4010 Balance 900 4010 Result Diagrams: 07/27/20 04:44 07/27/20 04:44 Dx/Plan - Plan Plan: Pt is an 79 yo female here for worsening anemia: # Asymptomatic Macrocytic and Iron Deficiency Anemia - appears patient could be hypoperliferative with ARC 1.7 - Hgb 7.8 > 8.3 s/p 1u pRBC. Hgb 8.7 this AM. - Consult GI: EGD and Colonoscopy on 07/27 revealed normal EGD, two diminutive descending colon polyps, sigmoid diverticulosis. Has signed off - hold aspirin - Polyp path pending # Stable CAD # Hx of Bypass x 3 - d/c aspirin - Dr. Gonzales aware patient is in hospital. Will need to discuss cardiac cath with Dr. Gonzales - no ST changes on EKG # HTN - continue home medications # HLD - continue home medications # Hypothyroid - continue home meds # Systolic Heart Failure - monitor fluid status # Aortic Valve Stenosis # Paroxysmal A-fib - Dr. Gonzales aware pt is in hospital. - continue amiodarone - EKG bradycardic - monitor, normal sinus rhythm - not on anticoag at home # PVD - held ASA Fluids: PO Diet: HH until 07/26 and change to clear liquids Code: Full VTE: SCD's Dispo: GI workup complete and negative. Will contact Dr. Gonzales to see if he still desires to perform cath tomorrow morning. Hgb stable at 8.7 this AM.
[2020-07-27] MEDS ORDERED: Ketamine 50 MG/ML (10ML VIAL) ONE (08:04)
[2020-07-27] MEDS ORDERED: Midazolam HCl 2 mg/2 ml Vial ONE (08:04)
[2020-07-27] MEDS: Docusate 100 MG CAP PO SCH ×2 (08:25→20:29)
[2020-07-27] MEDS: hydrALAZINE 25 MG TAB PO SCH ×3 (08:26→20:30)
[2020-07-27] MEDS ORDERED: Ondansetron HCl/PF 4 MG/2 ML Vial IVP PRN (09:05)
--- NOTE | 2020-07-27 09:17 | OP ---
DATE OF PROCEDURE: 07/27/2020 DINING ROOM ATTENDANT CAFETERIA SURGEON: None. PROCEDURES PERFORMED: 1. Esophagogastroduodenoscopy, diagnostic. 2. Colonoscopy with snare polypectomy. INDICATIONS: 1. Iron deficiency anemia. 2. Prior history of colon polyps. MEDICATIONS: See Anesthesia record. FINDINGS: After discussion of the risks, benefits, and alternatives of the procedure, informed consent was obtained and witnessed. Pre-endoscopic cardiopulmonary examination was satisfactory. Time-out was performed before sedation was achieved. Sedation was achieved with Anesthesia assistance in the endoscopy unit. A Pentax adult upper endoscope was placed into the oropharynx and passed through the cricopharyngeus under direct visualization. The esophageal mucosa appeared normal throughout with a normal-appearing Z-line. The endoscope was advanced into the stomach. Forward and retroflexed views of the entire gastric mucosa were obtained. The gastric mucosa appeared normal throughout. The endoscope was advanced through the pylorus and into the first and second portions of the duodenum, which were also unremarkable. The endoscope was completely withdrawn and the patient was repositioned. Digital rectal exam was performed, which was unremarkable. A Pentax adult colonoscope was inserted into the anus and passed forward to the cecum in the usual fashion. The cecal base was identified by the appendiceal orifice as well as the ileocecal valve. The terminal ileum was intubated and the ileal mucosa appeared normal. The colonoscope was slowly withdrawn in a gradual and circumferential manner with careful examination of the entire colonic mucosa. The quality of the prep was adequate. There was no evidence of any old blood or active bleeding within the colon. There were two diminutive sessile polyps in the descending colon, measuring 2-3 mm in size. These were both completely removed with cold snare and retrieved for pathology. There was some diverticulosis in the sigmoid colon. Retroflexion in the rectum was unremarkable. The colonoscope was completely withdrawn and the patient allowed to recover. The patient tolerated the procedure well. There were no immediate postprocedure complications. IMPRESSION: 1. Normal esophagogastroduodenoscopy. 2. Two diminutive descending colon polyps, both completely removed with cold snare and retrieved for pathology. 3. Sigmoid diverticulosis. 4. Otherwise normal colonoscopy to the terminal ileum. RECOMMENDATIONS: 1. Advance diet. 2. Continue iron supplementation. 3. Follow up pathology on the colon polyps. 4. No repeat colonoscopy, due to age. 5. Continue cardiac workup. GI will sign off. Please call back anytime with questions or concerns. Job ID: [id number]
[2020-07-27] MEDS ORDERED: Ondansetron ODT 4 MG TAB PO PRN (09:42)
[2020-07-27] MEDS ORDERED: Ondansetron PF 4 MG/2 ML Vial IVP PRN (09:42)
[2020-07-27] MEDS: Ferrous Sulfate 325 MG TAB PO SCH ×2 (10:36→20:29)
[2020-07-27] MEDS: Lisinopril 20 MG TAB PO SCH ×2 (10:37→20:29)
[2020-07-27] MEDS: Ezetimibe 10 MG TAB PO SCH (10:37)
[2020-07-27] MEDS: Atorvastatin Calcium 40 MG TAB PO SCH (10:37)
[2020-07-27] MEDS ORDERED: ePHEDrine 50 MG/ML VIAL ONE (14:21)
[2020-07-27] MEDS ORDERED: PROPOFOL 200 MG/20 ML VIAL ONE (14:21)
--- NOTE | 2020-07-27 16:50 | PRG ---
DATE OF SERVICE: 07/27/2020 Please see note from Dr. Jean Finney, for which I agree. The patient is seen, evaluated, discussed, and examined with the residents by bedside. Stable, doing fine. No major changes. Just getting scoped today, and then, will get a heart catheterization tomorrow. Job ID: [id number]
[2020-07-27] MEDS: Acetaminophen 325 MG TAB PO PRN (23:28)
[2020-07-28] MEDS ORDERED: Iopamidol 370 76% 100 ML VIAL ONE (11:08)
[2020-07-28] MEDS ORDERED: Sodium Chloride 0.9% 200 ML IV PRN (11:51)
[2020-07-28] MEDS ORDERED: Acetaminophen/Codeine 30-300mg Tablet PO PRN ×2 (11:51)
[2020-07-28] MEDS ORDERED: Nitroglycerin 0.4 MG TAB (25 Tab Bottle) SL PRN (11:51)
[2020-07-28] MEDS ORDERED: Sodium Chloride 0.9% 1,000 ML IV SCH (12:00)
[2020-07-28 14:58] LABS: Anion Gap 10 mmol/L (10-20); BUN (Urea Nitrogen) 19 mg/dL (9.8-20.1); Calc. Creatinine Clearance 42 mL/min (70-130); Calcium 8.4 mg/dL (7.8-10.44); Carbon Dioxide 27 mmol/L (23-31); Chloride 104 mmol/L (98-107); Glucose 87 mg/dL (83-110); Potassium 3.9 mmol/L (3.5-5.1); Sodium 137 mmol/L (136-145)
[2020-07-28] MEDS: Levothyroxine Sodium 100 MCG TAB PO SCH (14:59)
[2020-07-28 15:31] LABS: #Eosinphils 0.1 thou/uL (0.0-0.7); #Lymphocytes 0.5 thou/uL (1.20-3.40); #Monocytes 0.5 thou/uL (0.11-0.59); #Neutrophils 3.8 thou/uL (1.40-6.50); %Basophils 0.4 % (0.0-1.0); %Eosinophils 1.2 % (0.0-10.0); %Lymphocytes 9.8 % (21.0-51.0); %Monocytes 10.4 % (0.0-10.0); %Neutrophils 78.2 % (42.0-75.0); Hemoglobin 8.6 g/dL (12.0-16.0); Mean Corpuscular HGB CONC 33.1 g/dL (32.0-36.0); Mean Corpuscular Volume 99.5 fL (78.0-98.0); Mean Platelet Volume 7.9 fL (7.4-10.4); Platelet Count 116 thou/uL (130-400); RBC Distribution Width 14.2 % (11.5-14.5); White Blood Cell (WBC) Count 4.8 thou/uL (4.8-10.8)
[2020-07-28] MEDS: Amiodarone 200 MG TAB PO SCH (15:31)
[2020-07-28] MEDS: Ferrous Sulfate 325 MG TAB PO SCH ×2 (15:31→21:20)
[2020-07-28] MEDS: Atorvastatin Calcium 40 MG TAB PO SCH (15:31)
[2020-07-28] MEDS: hydrALAZINE 25 MG TAB PO SCH ×3 (15:31→21:21)
[2020-07-28] MEDS: Docusate 100 MG CAP PO SCH ×2 (15:31→21:20)
[2020-07-28] MEDS: Ezetimibe 10 MG TAB PO SCH (15:31)
[2020-07-28] MEDS: Lisinopril 20 MG TAB PO SCH ×2 (15:32→21:20)
--- NOTE | 2020-07-28 18:24 | PDOC.BPN ---
- Brief Progress Note Encounter Date: 07/28/20 Encounter Time: 18:00 This is a brief progress note for 07/28/20. Ms. Edwards had a L heart cath today with Dr. Gonzales with severe aortic stenosis. Will follow Dr. Gonzales's recs for d/c planning. See paper chart for more details.
[2020-07-29 03:45] LABS: #Eosinphils 0.1 thou/uL (0.0-0.7); #Lymphocytes 0.7 thou/uL (1.20-3.40); #Monocytes 0.5 thou/uL (0.11-0.59); %Basophils 0.3 % (0.0-1.0); %Eosinophils 2.1 % (0.0-10.0); %Lymphocytes 12.5 % (21.0-51.0); %Monocytes 9.8 % (0.0-10.0); %Neutrophils 75.3 % (42.0-75.0); Hemoglobin 7.5 g/dL (12.0-16.0); Mean Corpuscular Hemoglobin 31.5 pg (27.0-31.0); Mean Corpuscular Volume 98.4 fL (78.0-98.0); Mean Platelet Volume 7.5 fL (7.4-10.4); Platelet Count 113 thou/uL (130-400); RBC Distribution Width 14.2 % (11.5-14.5); White Blood Cell (WBC) Count 5.3 thou/uL (4.8-10.8)
[2020-07-29 04:00] LABS: Anion Gap 10 mmol/L (10-20); BUN (Urea Nitrogen) 16 mg/dL (9.8-20.1); Calc. Creatinine Clearance 48 mL/min (70-130); Calcium 7.8 mg/dL (7.8-10.44); Carbon Dioxide 24 mmol/L (23-31); Chloride 108 mmol/L (98-107); Glucose 83 mg/dL (83-110); Potassium 3.9 mmol/L (3.5-5.1); Sodium 138 mmol/L (136-145)
[2020-07-29] MEDS: Levothyroxine Sodium 100 MCG TAB PO SCH (06:26)
--- NOTE | 2020-07-29 06:48 | PDOC.FM ---
- Subjective Subjective: Ms. Edwards is doing well this morning and is eager to go home, although she does not know if her house has power or water at this time. She denies feeling lightheaded, dizzy, SOB this am, despite her hgb of 7.5. - Objective Vital Signs & Weight: Vital Signs (12 hours) Temp Pulse Resp BP Pulse Ox 07/29/20 03:19 98.5 F 51 L 16 120/59 L 95 07/29/20 00:00 47 L 07/28/20 19:20 98.1 F 46 L 16 143/62 H 95 Weight Weight 61.326 kg Most Recent Monitor Data Heart Rate from ECG 50 I&O: 07/27/20 07/28/20 07/29/20 06:59 06:59 06:59 Intake Total 4010 1292.5 Output Total 1280 Balance 4010 12.5 Result Diagrams: 07/29/20 03:14 07/29/20 03:14 Phys Exam - Physical Examination Constitutional: NAD Neck: supple Respiratory: no wheezing, no rales, clear to auscultation bilateral Cardiovascular: RRR Loud systolic murmur c/w dx of severe Musculoskeletal: no edema Neurological: non-focal, moves all 4 limbs Psychiatric: normal affect Dx/Plan - Plan Plan: Pt is an 79 yo female here for worsening anemia: Asymptomatic Macrocytic and Iron Deficiency Anemia - appears patient could be hypoproliferative with ARC 1.7 - s/p 1u pRBC on 07/25 - Hgb 7.5 this AM * Transfuse 1u pRBCs. 4hr post-transfusion H/H - Consult GI, Case * EGD and Colonoscopy on 07/27 revealed normal EGD, two diminutive descending colon polyps, sigmoid diverticulosis. Has signed off - Polyp path pending - hold aspirin Stable CAD Hx of Bypass x 3 - d/c aspirin - Cards, Dr. Gonzales, consulted * Cath on 07/28 that showed 3 vessel CAD, 3 of 3 stents patent, mild LV dysfunction, and severe * Will arrange for TAVR - no ST changes on EKG Aortic Valve Stenosis - Systolic murmur c/w dx - Visualized on 07/28 cath Paroxysmal A-fib - continue amiodarone. Not given 07/28 d/t unavailability - on tele. Has been in NSR - not on anticoag at home HTN - continue home medications HLD - continue home medications Hypothyroid - continue home meds HFrEF - monitor fluid status PVD - held ASA Fluids: PO Diet: HH-LS VTE: SCD's PCP: Louie Code: Full Dispo: Transfuse 1u pRBCs today, 4hr post H/H. D/c pending hgb stabilization, Dr. Gonzales recs, and weather/living conditions permitting. Addendum - Attending - Attending Attestation Date/Time: 07/29/20 7510 I personally evaluated the patient and discussed the management with Dr. Juanis Romero. I agree with the History, Examination, Assessment and Plan documented above with any addition or exceptions noted below.
[2020-07-29] MEDS: Ferrous Sulfate 325 MG TAB PO SCH ×2 (08:53→20:03)
[2020-07-29] MEDS: Lisinopril 20 MG TAB PO SCH (08:53)
[2020-07-29] MEDS: hydrALAZINE 25 MG TAB PO SCH ×3 (08:53→20:04)
[2020-07-29] MEDS: Amiodarone 200 MG TAB PO SCH (08:54)
[2020-07-29] MEDS: Atorvastatin Calcium 40 MG TAB PO SCH (08:54)
[2020-07-29] MEDS: Docusate 100 MG CAP PO SCH ×2 (08:54→20:03)
[2020-07-29] MEDS: Ezetimibe 10 MG TAB PO SCH (08:54)
[2020-07-29] MEDS ORDERED: Furosemide 20 MG/2 ML VIAL SLOW IVP SCH (09:00)
[2020-07-29] MEDS ORDERED: Iron, Sodium Ferric Gluconate 125 MG in Sodium Chloride 0.9% 100 ML IVPB SCH (13:15)
[2020-07-29 20:19] LABS: Hemoglobin 8.8 g/dL (12.0-16.0)
[2020-07-30] MEDS: Acetaminophen 325 MG TAB PO PRN ×2 (01:38→19:45)
[2020-07-30 05:29] LABS: #Eosinphils 0.1 thou/uL (0.0-0.7); #Lymphocytes 0.8 thou/uL (1.20-3.40); #Monocytes 0.7 thou/uL (0.11-0.59); #Neutrophils 4.3 thou/uL (1.40-6.50); %Basophils 0.7 % (0.0-1.0); %Eosinophils 2.1 % (0.0-10.0); %Lymphocytes 13.4 % (21.0-51.0); %Monocytes 12.1 % (0.0-10.0); %Neutrophils 71.6 % (42.0-75.0); Hemoglobin 8.4 g/dL (12.0-16.0); Mean Corpuscular HGB CONC 33.8 g/dL (32.0-36.0); Mean Corpuscular Hemoglobin 32.6 pg (27.0-31.0); Mean Corpuscular Volume 96.7 fL (78.0-98.0); Mean Platelet Volume 8.1 fL (7.4-10.4); Platelet Count 101 thou/uL (130-400); Red Blood Cell (RBC) Count 2.57 mill/uL (4.20-5.40)
[2020-07-30 05:41] LABS: Anion Gap 12 mmol/L (10-20); BUN (Urea Nitrogen) 17 mg/dL (9.8-20.1); Calc. Creatinine Clearance 44 mL/min (70-130); Calcium 7.9 mg/dL (7.8-10.44); Carbon Dioxide 24 mmol/L (23-31); Chloride 105 mmol/L (98-107); Glucose 82 mg/dL (83-110); Potassium 3.8 mmol/L (3.5-5.1); Sodium 137 mmol/L (136-145)
[2020-07-30] MEDS: Levothyroxine Sodium 100 MCG TAB PO SCH (05:45)
--- NOTE | 2020-07-30 06:43 | PDOC.FM ---
- Subjective Subjective: Ms. Edwards is doing well this morning. She is complaining of discomfort in her chest "like when you haven't eaten in a while" and states this happens occasionally. She denies CP, chest pressure, and remains in NSR in the 40s-50s on tele. The friend watching her house states she has running water but power going in and out and states she would not be able to pick her up from the hospital. - Objective Vital Signs & Weight: Vital Signs (12 hours) Temp Pulse Resp BP Pulse Ox 07/30/20 03:32 98.5 F 48 L 16 138/63 93 L 07/30/20 00:00 53 L 07/29/20 19:14 99.8 F H 56 L 16 138/65 94 L Weight Weight 60.509 kg Most Recent Monitor Data Heart Rate from ECG 50 I&O: 07/28/20 07/29/20 07/30/20 06:59 06:59 06:59 Intake Total 1292.5 1560 Output Total 1280 675 Balance 12.5 885 Result Diagrams: 07/30/20 04:21 07/30/20 04:21 Phys Exam - Physical Examination Constitutional: NAD Neck: supple Respiratory: no wheezing, no rales, clear to auscultation bilateral Cardiovascular: RRR Loud systolic murmur heard diffusely but loudest in upper L sternal border Gastrointestinal: soft, non-tender, no distention Musculoskeletal: no edema Neurological: non-focal, moves all 4 limbs Psychiatric: normal affect, A&O x 3 Dx/Plan - Plan Plan: Pt is an 79 yo female here for worsening anemia: Asymptomatic Macrocytic and Iron Deficiency Anemia - appears patient could be hypoproliferative with ARC 1.7 - s/p 1u pRBC on 07/25 and 1u pRBCs on 07/29 - Hgb 8.4 this am s/p transfusion - Polyp path from colonoscopy on 07/27 pending - hold aspirin Stable CAD Hx of Bypass x 3 - d/c aspirin - Cards, Dr. Gonzales, consulted * Cath on 07/28 that showed 3 vessel CAD, 3 of 3 stents patent, mild LV dysfunction, and severe * Will arrange for TAVR - no ST changes on EKG Aortic Valve Stenosis - Systolic murmur c/w dx - Visualized on 07/28 cath Paroxysmal A-fib - continue amiodarone - on tele. Has been in NSR - not on anticoag at home HTN - continue home medications HLD - continue home medications Hypothyroid - continue home meds HFrEF - monitor fluid status PVD - held ASA Fluids: PO Diet: HH-LS VTE: SCD's PCP: Louie Code: Full Dispo: D/c pending Dr. Gonzales recs and weather/living conditions permitting. Addendum - Attending - Attending Attestation Date/Time: 07/30/20 4575 I personally evaluated the patient and discussed the management with Dr. Juanis Romero I agree with the History, Examination, Assessment and Plan documented above with any addition or exceptions noted below. Will be transferred to [facility] for TAVR. Transport pending.
[2020-07-30] MEDS: Ferrous Sulfate 325 MG TAB PO SCH ×2 (07:40→21:29)
[2020-07-30] MEDS: Amiodarone 200 MG TAB PO SCH (07:41)
[2020-07-30] MEDS: hydrALAZINE 25 MG TAB PO SCH ×3 (07:41→21:30)
[2020-07-30] MEDS: Atorvastatin Calcium 40 MG TAB PO SCH (07:41)
[2020-07-30] MEDS: Ezetimibe 10 MG TAB PO SCH (07:42)
[2020-07-30] MEDS: Docusate 100 MG CAP PO SCH ×2 (07:42→21:29)
[2020-07-30] MEDS: Lisinopril 20 MG TAB PO SCH ×2 (07:42→21:29)
[2020-07-30] MEDS ORDERED: Calcium Carbonate 500 MG ChewTAB PO PRN (10:26)
[2020-07-31 04:51] LABS: Platelet Count 105 thou/uL (130-400)
[2020-07-31 04:53] LABS: #Eosinphils 0.2 thou/uL (0.0-0.7); #Monocytes 0.7 thou/uL (0.11-0.59); #Neutrophils 3.7 thou/uL (1.40-6.50); %Basophils 0.2 % (0.0-1.0); %Eosinophils 3.1 % (0.0-10.0); %Lymphocytes 17.2 % (21.0-51.0); %Monocytes 12.1 % (0.0-10.0); %Neutrophils 67.4 % (42.0-75.0); Hemoglobin 8.9 g/dL (12.0-16.0); Mean Corpuscular HGB CONC 33.2 g/dL (32.0-36.0); Mean Corpuscular Hemoglobin 31.7 pg (27.0-31.0); Mean Corpuscular Volume 95.4 fL (78.0-98.0); Mean Platelet Volume 7.7 fL (7.4-10.4); RBC Distribution Width 14.8 % (11.5-14.5); Red Blood Cell (RBC) Count 2.82 mill/uL (4.20-5.40); White Blood Cell (WBC) Count 5.5 thou/uL (4.8-10.8)
[2020-07-31 04:58] LABS: Anion Gap 9 mmol/L (10-20); BUN (Urea Nitrogen) 18 mg/dL (9.8-20.1); Calc. Creatinine Clearance 44 mL/min (70-130); Calcium 8.5 mg/dL (7.8-10.44); Carbon Dioxide 27 mmol/L (23-31); Chloride 105 mmol/L (98-107); Glucose 70 mg/dL (83-110); Potassium 3.8 mmol/L (3.5-5.1); Sodium 137 mmol/L (136-145)
[2020-07-31] MEDS: Levothyroxine Sodium 100 MCG TAB PO SCH (05:36)
--- NOTE | 2020-07-31 05:52 | PDOC.FM ---
- Subjective Subjective: Ms. Edwards is doing well this morning and has no complaints. She has not had another episode of the chest discomfort that she attributes to being hungry. She is awaiting her transfer to [facility] for her TAVR. - Objective Vital Signs & Weight: Vital Signs (12 hours) Temp Pulse Resp BP BP Pulse Ox 07/31/20 04:00 98 F 45 L 18 148/67 H 94 L 07/30/20 21:30 52 L 153/79 H 07/30/20 21:29 153/79 H 07/30/20 19:42 98.8 F 52 L 18 153/79 H 95 Weight Weight 58.967 kg Most Recent Monitor Data Heart Rate from ECG 50 I&O: 07/29/20 07/30/20 07/31/20 06:59 06:59 06:59 Intake Total 1292.5 1560 1080 Output Total 1280 675 Balance 12.5 885 1080 Result Diagrams: 07/31/20 03:56 07/31/20 03:56 Dx/Plan - Plan Plan: Pt is an 79 yo female here for worsening anemia: Asymptomatic Macrocytic and Iron Deficiency Anemia - appears patient could be hypoproliferative with ARC 1.7 - s/p 1u pRBC on 07/25 and 07/29 - Hgb mery at 8.9 this am. * Re-transfuse if hgb <8 - Polyp path from colonoscopy on 07/27 pending - hold aspirin Stable CAD Hx of Bypass x 3 - d/c aspirin - Cards, Dr. Gonzales, consulted * Cath on 07/28 that showed 3 vessel CAD, 3 of 3 stents patent, mild LV dysfunction, and severe * Will arrange for TAVR. Pending to [facility]ERO[facility] - no ST changes on EKG Aortic Valve Stenosis - Systolic murmur c/w dx - Visualized on 07/28 cath Paroxysmal A-fib - continue amiodarone - on tele - not on anticoag at home HTN - continue home medications HLD - continue home medications Hypothyroid - continue home meds HFrEF - monitor fluid status PVD - held ASA Fluids: PO Diet: HH-LS VTE: SCD's PCP: Louie Code: Full Dispo: D/c pending transfer to [facility].
[2020-07-31] MEDS: Lisinopril 20 MG TAB PO SCH ×2 (08:42→21:03)
[2020-07-31] MEDS: Docusate 100 MG CAP PO SCH ×2 (08:42→21:03)
[2020-07-31] MEDS: Ferrous Sulfate 325 MG TAB PO SCH ×2 (08:42→21:04)
[2020-07-31] MEDS: Amiodarone 200 MG TAB PO SCH (08:42)
[2020-07-31] MEDS: hydrALAZINE 25 MG TAB PO SCH ×3 (08:42→21:02)
[2020-07-31] MEDS: Atorvastatin Calcium 40 MG TAB PO SCH (08:42)
[2020-07-31] MEDS: Ezetimibe 10 MG TAB PO SCH (08:42)
--- NOTE | 2020-07-31 11:34 | PRG ---
DATE OF SERVICE: 07/31/2020 Ms. Edwards is resting quietly in bed. We are still awaiting transfer to [facility] for her TAVR. Job ID: [id number]
[2020-08-01 04:17] LABS: #Eosinphils 0.1 thou/uL (0.0-0.7); #Lymphocytes 0.6 thou/uL (1.20-3.40); #Monocytes 0.6 thou/uL (0.11-0.59); #Neutrophils 4.2 thou/uL (1.40-6.50); %Basophils 0.6 % (0.0-1.0); %Eosinophils 1.7 % (0.0-10.0); %Monocytes 10.5 % (0.0-10.0); %Neutrophils 76.2 % (42.0-75.0); Mean Corpuscular HGB CONC 32.8 g/dL (32.0-36.0); Mean Corpuscular Hemoglobin 31.3 pg (27.0-31.0); Mean Corpuscular Volume 95.3 fL (78.0-98.0); Mean Platelet Volume 7.7 fL (7.4-10.4); Platelet Count 120 thou/uL (130-400); RBC Distribution Width 14.5 % (11.5-14.5); Red Blood Cell (RBC) Count 2.87 mill/uL (4.20-5.40); White Blood Cell (WBC) Count 5.5 thou/uL (4.8-10.8)
[2020-08-01 04:41] LABS: Anion Gap 11 mmol/L (10-20); BUN (Urea Nitrogen) 17 mg/dL (9.8-20.1); Calc. Creatinine Clearance 46 mL/min (70-130); Calcium 8.3 mg/dL (7.8-10.44); Carbon Dioxide 26 mmol/L (23-31); Chloride 103 mmol/L (98-107); Glucose 84 mg/dL (83-110); Potassium 3.9 mmol/L (3.5-5.1); Sodium 136 mmol/L (136-145)
[2020-08-01] MEDS: Levothyroxine Sodium 100 MCG TAB PO SCH (05:55)
--- NOTE | 2020-08-01 06:23 | PDOC.FM ---
- Subjective Subjective: Ms. Edwards is not doing well this morning. She is having that discomfort in her chest again that she describes as a weird sensation she associates with being hungry. She is willing to try some antacids. She is also complaining of hip pain which is new for her. Her hips are bruised from the heart cath and ttp in those areas. She is concerned she is "not going to make it much longer" because she is not feeling well. - Objective Vital Signs & Weight: Vital Signs (12 hours) Temp Pulse Resp BP BP BP Pulse Ox 08/01/20 04:00 98.6 F 43 L 18 145/67 H 98 08/01/20 00:38 43 L 135/63 07/31/20 21:03 172/80 H 07/31/20 21:02 55 L 172/80 H 07/31/20 19:19 98.4 F 55 L 17 172/80 H 93 L 07/31/20 19:15 95 Weight Weight 58.151 kg Most Recent Monitor Data Heart Rate from ECG 50 I&O: 07/30/20 07/31/20 08/01/20 06:59 06:59 06:59 Intake Total 1560 1080 1440 Output Total 675 Balance 885 1080 1440 Result Diagrams: 08/01/20 03:53 08/01/20 03:53 Phys Exam - Physical Examination Concerned about life expectancy today Neck: supple Respiratory: clear to auscultation bilateral Cardiovascular: RRR Loud systolic murmur loudest at L upper sternal border c/w dx of severe Gastrointestinal: soft, non-tender, no distention Musculoskeletal: no edema Bruising and ttp at b/l hip flexors c/w heart cath Neurological: non-focal, moves all 4 limbs Psychiatric: normal affect, A&O x 3 Skin: no rash Dx/Plan - Plan Plan: Pt is an 79 yo female here for worsening anemia: Aortic Valve Stenosis - Systolic murmur c/w dx - Visualized on 07/28 cath, see below. - Dr. Gonzales is arranging for TAVR. Pending transfer to [facility] or return home with OP f/u at [facility] Stable CAD Hx of Bypass x 3 - d/c aspirin - Cards, Dr. Gonzales, consulted * Cath on 07/28 that showed 3 vessel CAD, 3 of 3 stents patent, mild LV dysfunction, and severe - Hip pain and bruising s/p cath. Will order ice/heating pad - no ST changes on EKG Deconditioning - Concern for physical deconditioning from pt stating she is not walking well - PT eval/tx ordered - Post-acute screen ordered Asymptomatic Macrocytic and Iron Deficiency Anemia - appears patient could be hypoproliferative with ARC 1.7 - s/p 1u pRBC on 07/25 and 07/29 - Hgb mery at 9.0 this am. * Re-transfuse if hgb <8 - Polyp path from colonoscopy on 07/27 pending - hold aspirin Bradycardic NSR in setting of hx of paroxysmal A-fib - continue amiodarone - on tele. Has been in asx bradycardic NSR throughout stay - not on anticoag at home HFrEF - monitor fluid status PVD - held ASA Chronic conditions, continue home meds: HTN HLD Hypothyroid Fluids: PO Diet: HH-LS VTE: SCD's PCP: Louie Code: Full Dispo: D/c pending transfer to [facility] or improvement in weather/living conditions so pt can go home and f/u at [facility] in the OP setting.
[2020-08-01] MEDS: Ezetimibe 10 MG TAB PO SCH (08:44)
[2020-08-01] MEDS: Ferrous Sulfate 325 MG TAB PO SCH ×2 (08:44→21:01)
[2020-08-01] MEDS: hydrALAZINE 25 MG TAB PO SCH ×3 (08:44→21:00)
[2020-08-01] MEDS: Atorvastatin Calcium 40 MG TAB PO SCH (08:45)
[2020-08-01] MEDS: Amiodarone 200 MG TAB PO SCH (08:45)
[2020-08-01] MEDS: Lisinopril 20 MG TAB PO SCH ×2 (08:45→21:01)
[2020-08-01] MEDS: Docusate 100 MG CAP PO SCH ×2 (08:45→21:01)
[2020-08-01] MEDS ORDERED: Ondansetron ORAL SOLN. 4 MG/5 ML UDCUP PO PRN (08:51)
--- NOTE | 2020-08-01 12:42 | PRG ---
DATE OF SERVICE: 08/01/2020 Ms. Edwards was having some chest discomfort earlier today, which has seemed to be relieved with Tums. She had a heart cath very recently, which demonstrated patent stents. We are awaiting transfer and disposition for her TAVR. TAVR and aortic stenosis. Job ID: [id number]
[2020-08-01 20:58] VITALS: BP 169/77; TEMP 98.5
--- NOTE | 2020-08-02 17:14 | EKG ---
Test Reason : Blood Pressure : / mmHG Vent. Rate : 052 BPM Atrial Rate : 052 BPM P-R Int : 150 ms QRS Dur : 106 ms QT Int : 494 ms P-R-T Axes : 080 066 099 degrees QTc Int : 459 ms Sinus bradycardia Abnormal ECG Confirmed by RIVKA COLLAZO DO ([id number]), primer expeditor and drier JHONATAN LOMBARDI ([id number]) on 08/02/2020 5:14:12 PM Referred By: Confirmed By:RIVKA COLLAZO DO
--- NOTE | 2020-08-04 15:14 | DIS ---
DATE OF ADMISSION: 07/25/2020 DATE OF DISCHARGE: 08/01/2020 RESIDENT: Alice Castillo MD ADMITTING ATTENDING: Mat Mansfield MD DISCHARGE ATTENDING: Cristian Hunt MD CONSULTS: 1. GI, Dr. Lofton (07/26). 2. Cardiology, Dr. Gonzales (07/27). PROCEDURES: 1. Electrocardiogram (07/25) - sinus bradycardia, QTc 459, rate is 52 beats per minute. 2. EGD and colonoscopy (07/27) - normal EGD. On colonoscopy, two diminutive descending colon polyps and sigmoid diverticulosis. 3. Left heart catheterization (07/28) - 3-vessel CAD, three of three stents patent, mild LV dysfunction, and severe . PRIMARY DIAGNOSES: Asymptomatic macrocytic and iron deficiency anemia, stable; coronary artery disease, aortic valve stenosis, severe aortic stenosis. SECONDARY DIAGNOSES: Paroxysmal atrial fibrillation, hypertension, hyperlipidemia, hypothyroidism, HFrEF, peripheral vascular disease. DISCHARGE MEDICATIONS: New medications include: 1. Amiodarone 200 mg p.o. daily. 2. Hydralazine 100 mg p.o. t.i.d. 3. Pantoprazole 40 mg p.o. b.i.d. 4. Levothyroxine 100 mcg p.o. q.a.m. Continued medications: 1. Ezetimibe 10 mg p.o. daily. 2. Atorvastatin 80 mg p.o. daily. 3. Lisinopril 20 mg p.o. b.i.d. 4. Aspirin 81 mg p.o. daily. 5. Docusate 100 mg p.o. b.i.d. 6. Tylenol No.3 one tab p.o. q.6h p.r.n. 7. Cyclobenzaprine 10 mg p.o. t.i.d. p.r.n. 8. Ferrous sulfate 325 mg p.o. b.i.d. Discontinued medication: Amiodarone 0.5 tab p.o.daily. HISTORY OF PRESENT ILLNESS/HOSPITAL COURSE: This is an 79-year-old female with a past medical history of iron deficiency anemia, CAD, S/P CABG, and diverticulosis, who presented to the ED for anemia. She had gotten labs drawn by Dr. Gonzales earlier in the week, which showed a hemoglobin of less than 8. She apparently has recurrent anemia with no clear source and given her current history, he requested she be admitted for further evaluation. On arrival, she was hypertensive, bradycardic with a hemoglobin of 7.8. She was transfused 1 unit of packed red blood cells and GI, Dr. Lofton, was consulted for possible scope. On 07/27, Dr. Lofton performed an EGD and colonoscopy with the findings as described above. Dr. Gonzales was consulted and decided to perform a left heart catheterization as preop clearance for a TAVR which he had been wanting to perform for her. She had this catheterization on 07/28 with the findings noted above. He was able to arrange for her to be transferred to [facility] in [place] to have this TAVR performed. She will be directly transferred there once a bed becomes available. DISPOSITION: Stable. DISCHARGE INSTRUCTIONS: 1. Location: [facility] in [place]. 2. Diet: Heart healthy - low sodium. 3. Activity as instructed by Dr. Gonzales and Cardiovascular Surgery. 4. Followup. The patient is encouraged to follow up with her PCP in 7-10 days. She is encouraged to follow up at cardiac rehab in [place]. She is encouraged to follow up with Dr. Gonzales in 2-3 weeks. Job ID: [id number]
--- NOTE | 2020-08-08 01:53 | PQF ---
CLINICAL DOCUMENTATION CLARIFICATION FORM: Dear : Jose Hearn Date / Time: 08/08/2020 Please exercise your independent, professional judgment in responding to the clarification form. Clinical indicators are provided on the bottom of this form for your review Please check appropriate box(es): HEART FAILURE: ACUITY [ ] Acute [ ] Acute on Chronic [ x ] Chronic [ ] Other diagnosis [ ] Unable to determine In addition, please specify: Present on Admission (POA): [ x ] Yes [ ] No [ ] Unable to determine To be completed by CDI/Coding staff for physician review: Present Clinical Indicators - Signs / Symptoms / Labs Results and Location in Medical Record [ x ] Systolic heart failure, monitor fluid status Progress note 07/27 by Kyle Sandoval [ x ] Stable CAD, history of bypass x3. Cardiology consulted. Cath on 07/28 showed 3-vessel CAD, 3 stent patient and severe Progress note 07/29 by Jose Myrick [ x ] Aortic valve stenosis, systolic murmur c/w dx. Visualized on 07/28 cath Progress note 07/29 by Jose Myrick [ x ] HFREF, monitor fluid status. Bradycardic NSR in setting of history of paroxysmal afib, continue amiodarone Progress note 08/01 by Jose Myrick Present Risk Factors Results and Location in Medical Record [ x ] History of CAD, CABG, stent, hypertension, aortic stenosis, PVD Progress note 07/31 by Alice Winston Present Treatments Results and Location in Medical Record [ x ] Electrocardiogram 07/25 Reports [ x ] Monitoring fluid status Progress note 07/27 by Kyle Sandoval [ X ] Cardiology Consult Reports [ x ] IV Lasix Medications CDS/Sort Operations Supervisor Signature: PKJavid Phone #: Date/Time: 08/08/2020 This is a permanent part of the Medical Record [facility]
== END 2020-08-01 21:30 | disposition short-term general hospital (02) | DRG 812 ==
LOC: ERS 15:29 → T4-A 17:14 → 2NO 07-28 11:55
PROVIDERS: ADMIT Family Medicine; ATTEND Family Medicine
PROC: 30233N1 Transfusion of Nonautologous Red Blood Cells into Peripheral Vein, Percutaneous Approach (ICD-10-PCS; 2020-07-25)
PROC: 0DBM8ZZ Excision of Descending Colon, Via Natural or Artificial Opening Endoscopic (ICD-10-PCS; principal; 2020-07-27)
PROC: 0DJ08ZZ Inspection of Upper Intestinal Tract, Via Natural or Artificial Opening Endoscopic (ICD-10-PCS; 2020-07-27)
PROC: 4A023N8 Measurement of Cardiac Sampling and Pressure, Bilateral, Percutaneous Approach (ICD-10-PCS; 2020-07-28)
PROC: B2011ZZ Plain Radiography of Multiple Coronary Arteries using Low Osmolar Contrast (ICD-10-PCS; 2020-07-28)
PROC: B3001ZZ Plain Radiography of Thoracic Aorta using Low Osmolar Contrast (ICD-10-PCS; 2020-07-28)
DX: D50.9 Iron deficiency anemia, unspecified (principal); I50.22 Chronic systolic (congestive) heart failure; I25.10 Atherosclerotic heart disease of native coronary artery without angina pectoris; I48.0 Paroxysmal atrial fibrillation; E78.5 Hyperlipidemia, unspecified; D53.9 Nutritional anemia, unspecified; I11.0 Hypertensive heart disease with heart failure; I35.0 Nonrheumatic aortic (valve) stenosis; I73.9 Peripheral vascular disease, unspecified; K57.30 Diverticulosis of large intestine without perforation or abscess without bleeding; K63.5 Polyp of colon; E03.9 Hypothyroidism, unspecified; Z95.1 Presence of aortocoronary bypass graft; Z79.899 Other long term (current) drug therapy; Z79.82 Long term (current) use of aspirin
CPT/HCPCS: 36415; 36430; 71046; 76942; 80048; 80053; 82607; 82728; 82746; 83540; 83550; 85025; 85046; 85347; 86850; 86900; 86901; 87635; 88305; 93005; 93460; 93567; 94760; 99152; 99153; J2250; J2405; J2704; J2916; J3490; P9016; Q9967; U0003; U0005

== ENCOUNTER 2020-10-10 10:44 | Outpatient (CLI) | payer MEDICARE, MEDICAID | END 2020-10-10 10:45 | disposition home or self-care (01) | LOC: BICULT 10:44 | PROVIDERS: ATTEND Family Medicine | DX: N85.8 Other specified noninflammatory disorders of uterus (principal) | CPT/HCPCS: 76856 ==